=== PATIENT | male | born 1925 | race Caucasian/White ===

== ENCOUNTER 2016-12-10 19:39 | Inpatient (IN) | payer MEDICARE ==
--- NOTE | 2016-12-10 20:09 | C.PDOC ---
History Of Present Illness REFERRED PMD FOR WORSENING SOB X 2-3 WEEKS. PS HO CHRONIC SOB BUT NOW MORE SWARTZ, "TAKING LONGER TO RECOVER" THAN USUAL. +ASSOC CHEST PRESSURE. SX IMPROVE W REST. NEW ONSET HYPOXIA. DENIES HO COPD. COMPLIANT W MEDS. HO AORTIC STENOSIS, MV REPAIR. NOT ON ANTICOAG DUE TO PRIOR HO "ANEMIA", PUD. EXAM 92% RA MILD DIST NONTOXIC HEENT MILD PALLOR MMM LUNGS B/L BASILAR RALES NO RETRACTION CV RRR ABD NEG NO EDEMA WARM DRY GOOD TURGOR RECTAL BROWN STOOL RN BRITTA EVENT PLANNER PS NO IMPROVE W O2 USE. Time Seen by Provider: 12/10/16 19:53 Chief Complaint (Nursing): Shortness Of Breath History Per: Patient History/Exam Limitations: no limitations Onset/Duration Of Symptoms: Days Current Symptoms Are (Timing): Worse Quality: Pressure Current Respiratory Medications: See Home Med List Associated Symptoms: Chest Pain. denies: Fever, Bloody Cough, Ankle/Leg Swelling, Dizziness Recent travel outside of the [place]: No Past Medical History Reviewed: Historical Data, Nursing Documentation, Vital Signs Vital Signs: Last Vital Signs Temp 97.7 F 12/10/16 19:43 Pulse 98 H 12/10/16 19:43 Resp 16 12/10/16 20:00 BP 147/71 12/10/16 19:43 Pulse Ox 92 L 12/10/16 22:54 - Medical History PMH: Anemia, Anxiety, Arthritis (BL TKR), Asthma, Benign Prostatic Hyperplasia, CAD, CHF, COPD, Diabetes, Diverticulitis, Gastritis, Gastrointestinal Ulcer, Gall Bladder Disease, Hiatal Hernia, HTN, Hypercholesterolemia, Hyperlipidemia Surgical History: CABG, Cholecystectomy, Coronary Stent, Endoscopy, Pacemaker ( with defibrillator) - [facility] Procedures INTRAOPER CHOLANGIOGRAM (06/26/14) LAPAROSCOPIC CHOLECYSTECTOMY (06/26/14) OTHER ENDOSCOPY OF SM INTEST (07/01/14) Family History: States: Unknown Family Hx - Social History Hx Tobacco Use: Yes Hx Alcohol Use: Yes Hx Substance Use: No - Immunization History Hx Tetanus Toxoid Vaccination: No Hx Influenza Vaccination: Yes Hx Pneumococcal Vaccination: Yes Review Of Systems Constitutional: Negative for: Fever, Chills Cardiovascular: Positive for: Chest Pain Respiratory: Positive for: SOB with Excertion. Negative for: Cough Gastrointestinal: Negative for: Nausea, Vomiting Skin: Negative for: Rash Neurological: Negative for: Dizziness Physical Exam - Physical Exam Appears: Non-toxic, Other (MILD DISTRESS, 92% RA) Skin: Warm, Dry, Other (GOOD TURGOR) Head: Atraumatic, Normacephalic Eye(s): bilateral: PERRL, EOMI, Conjunctiva Pale (MILD) Oral Mucosa: Moist Chest: Symmetrical Cardiovascular: Rhythm Regular, No Edema, No Murmur Respiratory: No Accessory Muscle Use, Rales (BIBASILAR), No Wheezing Gastrointestinal/Abdominal: Soft, No Tenderness, No Guarding, No Rebound Rectal: No Blood Streaked Stool, Other (BROWN STOOL. RN BRITTA SANCHEZ. ) Back: Normal Inspection Extremity: Normal ROM, No Pedal Edema, Capillary Refill (< 2 SEC. ) Neurological/Psych: Oriented x3 ED Course And Treatment - Laboratory Results Result Diagrams: 12/10/16 20:43 12/10/16 20:43 ECG: Interpreted By Ia ECG Rhythm: R BBB ECG Interpretation: Abnormal Interpretation Of ECG: NO PRIOR Rate From EC O2 Sat by Pulse Oximetry: 92 (RA) Pulse Ox Interpretation: Abnormal - Radiology CXR: Interpreted by Ia CXR Interpretation: Yes: Other (CHF) - CT Scan/US CTA Chest Other Rad Studies (CT/US): Read By Radiologist, Radiology Report Reviewed CT/US Interpretation: IMPRESSION: No filling defect within the main, proximal or segmental pulmonary arteries. Findings consistent with prior asbestos exposure, and chronic interstitial lung disease, as detailed. above. Progress - Re-Evaluation Re-evaluation Note: 12/10/16 21:27 EXAM UNCH NARD VSS. WILL CTA 12/10/16 22:53 d/w dr yumiko underwood aware of cta findings, will admit EXAM UNCH PRIOR - Data Reviewed Data Reviewed: Lab, Diagnostic imaging, EKG, Old records - Critical Care Citical Care: Excluding Proc Time Critical Care Time: 90 minutes - Continuity of Care Discussed patient case with:: Patient, PMD Disposition Counseled Patient/Family Regarding: Studies Performed, Diagnosis - Disposition Disposition: HOSPITALIZED Disposition Time: 22:53 Condition: STABLE - POA Present On Arrival: None - Clinical Impression Clinical Impression: Dyspnea, Shortness of breath on exertion, Hypoxemia - Scribe Statement The provider has reviewed the documentation as recorded by the Kelliibcyndi Hudson All medical record entries made by the Scribe were at my direction and personally dictated by me. I have reviewed the chart and agree that the record accurately reflects my personal performance of the history, physical exam, medical decision making, and the department course for this patient. I have also personally directed, reviewed, and agree with the discharge instructions and disposition. Decision To Admit - Pt Status Changed To: Hospital Disposition Of: Inpatient - Admit Certification Admit to Inpatient:: After my assessment, the patient will require hospitalization for at least two midnights. This is because of the severity of symptoms shown, intensity of services needed, and/or the medical risk in this patient being treated as an outpatient. - InPatient: Physician Admission Certification: I certify that this patient requires 2 or more midnights of care for the following reason:: SEE NOTE - . Bed Request Type: Regular Admitting Physician: Torsten Underwood Patient Diagnosis: Dyspnea, Shortness of breath on exertion, Hypoxemia
[2016-12-10 20:52] LABS: BASO # 0.1 K/uL (0.0-0.2); BASO % 1.1 % (0.0-2.0); EOS # 0.2 K/uL (0.0-0.7); HEMATOCRIT 30.8 % (35.0-51.0); LYMPH # 0.6 K/uL (1.0-4.3); LYMPH % 12.5 % (20.0-40.0); MEAN CELL VOLUME 78.1 fL (80.0-94.0); MEAN CORPUSCULAR HEMOGLOBIN 24.5 pg (27.0-31.0); MEAN CORPUSCULAR HGB CONC 31.4 g/dL (33.0-37.0); MEAN PLATELET VOLUME 8.5 fL (7.2-11.7); MONO # 0.6 K/uL (0.0-0.8); MONO % 12.8 % (0.0-10.0); RED CELL DISTRIBUTION WIDTH 18.6 % (11.5-14.5); WHITE BLOOD COUNT 5.1 K/uL (4.8-10.8)
[2016-12-10 20:57] LABS: ABG ALLEN TEST POS; DRAW SITE RRADIAL
[2016-12-10 21:00] LABS: CHLORIDE 99 mmol/L (98-107); SODIUM 133 mmol/L (132-148)
[2016-12-10 21:01] LABS: POTASSIUM 4.1 mmol/L (3.6-5.2)
[2016-12-10 21:03] LABS: ALKALINE PHOSPHATASE 53 U/L (38-126); AST/SGOT 36 U/L (17-59); BILIRUBIN,TOTAL 0.7 mg/dL (0.2-1.3); BLOOD UREA NITROGEN 39 mg/dL (9-20); CARBON DIOXIDE 23 mmol/L (22-30); GFR AFRICAN-AMERICAN > 60; GLUCOSE,RANDOM 151 mg/dL (75-110)
[2016-12-10 21:04] LABS: ALT/SGPT 22 U/L (21-72); CALCIUM 8.2 mg/dl (8.6-10.4); MAGNESIUM 2.5 mg/dL (1.6-2.3)
[2016-12-10 21:12] LABS: INR 1.4
[2016-12-10 21:33] LABS: THYROID STIMULATING HORMONE 1.72 mIU/L (0.46-4.68)
[2016-12-10] MEDS ORDERED: Iohexol 350mg/ml 100 ML ONE (21:39)
--- NOTE | 2016-12-10 22:46 | CT ---
EXAM: CT Angiography Chest With Intravenous Contrast CLINICAL HISTORY: 89 years old, male; Signs and symptoms; Shortness of breath; Additional info: SOB R/O pe TECHNIQUE: Axial computed tomographic angiography images of the chest with intravenous contrast using pulmonary embolism protocol. This CT exam was performed using one or more of the following dose reduction techniques: automated exposure control, adjustment of the mA and/or kV according to patient size, and/or use of iterative reconstruction technique. MIP reconstructed images were created and reviewed. Coronal and sagittal reformatted images were created and reviewed. CONTRAST: 100 mL of omnipaque 350 administered intravenously. COMPARISON: No relevant prior studies available. FINDINGS: Pulmonary arteries: Examination is markedly limited for the detection of pulmonary embolus secondary to poor bolus timing. No large filling defect is detected within the main, proximal or segmental pulmonary arteries. Limited evaluation of the subsegmental branches, secondary to the above. Aorta: No thoracic aortic aneurysm. Calcified atherosclerotic disease is present. Lungs: No mass. No consolidation. Severe centrilobular emphysematous change is identified. Multiple pleural plaques are also noted. Nodular pleural thickening is identified within the right lung base (series 4, image 73). Interstitial thickening with moderate bronchiectasis, specifically within the bilateral lower lobes. Pleural spaces: No significant effusion. No pneumothorax. Heart: The heart is enlarged, with significant calcified atherosclerotic disease. Findings consistent with a minimally invasive aortic valve replacement is identified. No significant pericardial effusion. No evidence of right heart dysfunction. An AICD is noted, with its leads projecting over the atrium, ventricle and coronary sinus. Bones: No acute fracture. Prior Median sternotomy is identified. Lymph nodes: No pathologically enlarged lymph nodes. IMPRESSION: No filling defect within the main, proximal or segmental pulmonary arteries. Findings consistent with prior asbestos exposure, and chronic interstitial lung disease, as detailed above. Additional nonacute findings are also detailed above.
[2016-12-10 23:45] LABS: RBC URINE 4 /hpf (0-3); TRANSITIONAL EPITHIAL < 1 /hpf (0-3); URINE BACTERIA RARE (<OCC); URINE BILIRUBIN NEGATIVE (NEGATIVE); URINE BLOOD 1+ (NEGATIVE); URINE COLOR Yellow (YELLOW); URINE GLUCOSE (UA) NORMAL (Normal); URINE KETONE NEGATIVE (NEGATIVE); URINE LEUKOCYTE ESTERASE NEG Leu/uL (Negative); URINE PROTEIN 1+ mg/dL (NEGATIVE); URINE UROBILINOGEN NORMAL mg/dL (0.2-1.0); WBC URINE 1 /hpf (0-5)
[2016-12-11] MEDS: Albuterol 0.083% Inhal Sol (2.5 mg/3 mL) UD INH SCH ×3 (07:37→19:07)
--- NOTE | 2016-12-11 08:47 | RAD ---
PROCEDURE: CHEST RADIOGRAPH, 1 VIEW HISTORY: Shortness of breath COMPARISON: 02/06/2015 FINDINGS: LUNGS: Prominent diffuse increased interstitial lung markings throughout both lungs suggestive for a moderate venous congestion and/or interstitial infiltrates. Additional patchy bibasilar airspace opacities with more focal consolidative changes at the left lung base. Scattered nodular densities throughout both lungs. Question small left pleural effusion. Biapical pleural thickening with upper lobe granulomatous changes. PLEURA: As above. CARDIOVASCULAR: Cardiomegaly. Calcification at the aortic knob. Status post median sternotomy. Left-sided pacemaker. OSSEOUS STRUCTURES: Degenerative changes in the spine and shoulders. VISUALIZED UPPER ABDOMEN: Normal. OTHER FINDINGS: None. IMPRESSION: Prominent diffuse increased interstitial lung markings throughout both lungs suggestive for a moderate venous congestion and/or interstitial infiltrates. Additional patchy bibasilar airspace opacities with more focal consolidative changes at the left lung base. Scattered nodular densities throughout both lungs. Question small left pleural effusion. Biapical pleural thickening with upper lobe granulomatous changes.
--- NOTE | 2016-12-11 18:50 | CARD ---
APPROVED REPORT EKG Measurement Heart [id number] <Conclusion> Normal sinus rhythm Electronic AV sequential Pacemaker / AICD with Right bundle branch block pattern. Abnormal ECG
--- NOTE | 2016-12-11 20:55 | CP.PCM.HP ---
History of Present Illness - History of Present Illness History of Present Illness: CC: increasing shortness of breath HPI: 89 yo male of [place] descent, formerly in the , who had been complaining of increasing shortness of breath katie when bending down or carrying heavy things like after he comes from grocery shopping. Over the last week, pt had also been unable to sleep and kept staying up overnight. 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 After a visit to the office where we discussed his medications, it became apparent that he had not been using his inhaled steroids during his neb treatments. Pt's daughter called afterwards and wanted to know what to do, and when instructed to monitor his pulse ox and HR religsiouly, pt reluctfolowed my advice and agreed to the monitoring of his oxygen status. During that time, we found precipitous drops in his O2 sat to the 50s even, prompting the to go to the ER for further evaluation. Present on Admission - Present on Admission Any Indicators Present on Admission: No History of DVT/PE: No History of Uncontrolled Diabetes: No Review of Systems - Review of Systems Systems not reviewed;Unavailable: Unstable Vital Signs, Respiratory Distress, Altered Mental Status All systems: reviewed and no additional remarkable complaints except - Cardiovascular Cardiovascular: As Per HPI, Dyspnea on Exertion - Respiratory Respiratory: Cough, Dyspnea, Dyspnea on Exertion - Gastrointestinal Gastrointestinal: Change in Bowel Habits, Early Satiety - Musculoskeletal Musculoskeletal: absent: As Per HPI, Abnormal Gait, Arthralgias, Atrophy, Back Pain, Deformity, Joint Swelling, Limited Range of Motion, Loss of Height, Muscle Cramps, Muscle Weakness, Myalgias, Neck Pain, Numbness, Radiating Pain into Limb, Stiffness, Tingling, Other - Integumentary Integumentary: absent: As Per HPI, Acne, Alopecia, Bleeding Lesions, Change in Hair, Change in Nails, Change in Pigmentation, Changing Lesions, Dry Skin, Erythema, Furuncle, Hirsutism, Lesions, New Lesions, Non-Healing Lesions, Photosensitivity, Pruritus, Rash, Skin Pain, Skin Ulcer, Sores, Striae, Swelling , Unusual Bruising, Wounds, Jaundice, Other - Neurological Neurological: absent: As Per HPI, Abnormal Gait, Abnormal Hearing, Abnormal Movements, Abnormal Speech, Behavioral Changes, Burning Sensations, Confusion, Convulsions, Disequilibrium, Dizziness, Numbness, Focal Weakness, Frequent Falls , Headaches, Lack of Coordination, Loss of Vision, Memory Loss, Paresthesias, Radicular Pain, Restless Legs, Sensory Deficit, Syncope, Tingling, Tremor, Vertigo, Weakness, Other Visual Disturbances, Other - Psychiatric Psychiatric: Anxiety, Confusion, Difficulty Concentrating, Memory Loss - Hematologic/Lymphatic Hematologic: absent: As Per HPI, Easy Bleeding, Easy Bruising, Lymphadenopathy, Other Past Patient History - Past Medical History & Family History Past Medical History?: Yes - Past Social History Smoking Status: Former Smoker - CARDIAC Hx Cardiac Disorders: Yes Hx Congestive Heart Failure: Yes Hx Hypercholesterolemia: Yes Hx Hypertension: Yes - PULMONARY Hx Chronic Obstructive Pulmonary Disease (COPD): Yes - NEUROLOGICAL Hx Neurological Disorder: No - HEENT Hx HEENT Problems: No - RENAL Hx Chronic Kidney Disease: Yes Other/Comment: mild CKD at times - ENDOCRINE/METABOLIC Hx Diabetes Mellitus Type 2: Yes - HEMATOLOGICAL/ONCOLOGICAL Hx Blood Disorders: Yes Hx Anemia: Yes - INTEGUMENTARY Hx Dermatological Problems: No - MUSCULOSKELETAL/RHEUMATOLOGICAL Hx Arthritis: Yes (BL TKR) - GASTROINTESTINAL Hx Gastrointestinal Disorders: Yes Hx Diverticulitis: Yes Hx Gall Bladder Disease: Yes Hx Gastritis: Yes - GENITOURINARY/GYNECOLOGICAL Hx Genitourinary Disorders: Yes Hx Prostate Problems: Yes - PSYCHIATRIC Hx Psychophysiologic Disorder: Yes Hx Anxiety: Yes Hx Substance Use: No - SURGICAL HISTORY Hx Surgeries: Yes Hx Cholecystectomy: Yes Hx Coronary Artery Bypass Graft: Yes Hx Coronary Stent: Yes - ANESTHESIA Hx Anesthesia: Yes Hx Anesthesia Reactions: No Hx Malignant Hyperthermia: No Has any member of the family had a problem w/ anesthesia?: No Meds Allergies/Adverse Reactions: Allergies Allergy/AdvReac Type Severity Reaction Status Date / Time warfarin sodium Allergy Verified 12/10/16 19:50 [From Coumadin] acetaminophen [From Vicodin] AdvReac SHORTNESS Verified 12/10/16 19:50 OF BREATH hydrocodone bitartrate AdvReac SHORTNESS Verified 12/10/16 19:50 [From Vicodin] OF BREATH Physical Exam - Constitutional Appears: No Acute Distress - Head Exam Head Exam: ATRAUMATIC, NORMAL INSPECTION, NORMOCEPHALIC - Eye Exam Eye Exam: EOMI, Normal appearance, PERRL Pupil Exam: NORMAL ACCOMODATION, PERRL - ENT Exam ENT Exam: Mucous Membranes Moist, Normal Exam, Normal Oropharynx - Neck Exam Neck exam: Positive for: Normal Inspection - Respiratory Exam Respiratory Exam: Clear to Auscultation Bilateral, NORMAL BREATHING PATTERN - Cardiovascular Exam Cardiovascular Exam: REGULAR RHYTHM, +S2 - GI/Abdominal Exam GI & Abdominal Exam: Firm, Normal Bowel Sounds, Soft - Rectal Exam Rectal Exam: Deferred, NORMAL INSPECTION - Back Exam Back exam: NORMAL INSPECTION, paraspinal tenderness - Neurological Exam Neurological exam: Alert (though slow to respond) - Psychiatric Exam Psychiatric exam: Normal Affect, Normal Mood - Skin Skin Exam: Dry, Erythema, Intact, Normal Color, Warm Results - Vital Signs Recent Vital Signs: Last Vital Signs Temp 99.4 F 12/11/16 15:10 Pulse 68 12/11/16 15:10 Resp 20 12/11/16 15:10 BP 118/62 12/11/16 15:10 Pulse Ox 96 12/11/16 15:10 - Labs Result Diagrams: 12/12/16 14:04 12/12/16 14:04 Labs: Laboratory Results - last 24 hr 12/10/16 12/10/16 12/11/16 23:36 23:46 06:52 Iron 29 L Urine Color Yellow Urine Clarity Clear Urine pH 5.0 Ur Specific [place] 1.023 Urine Protein 1+ H Urine Glucose (UA) Normal Urine Ketones Negative Urine Blood 1+ H Urine Nitrate Negative Urine Bilirubin Negative Urine Urobilinogen Normal Ur Leukocyte Esterase Neg Urine WBC (Auto) 1 Urine RBC (Auto) 4 H Ur Squamous Epith Cells < 1 Ur Transition Epith Cell < 1 Urine Bacteria Rare Hyaline Casts 6-10 H Blood Type A POSITIVE Antibody Screen Negative Assessment & Plan (1) Generalized weakness Assessment and Plan: unknown etiology; work up patient and observe; may be 2ndry to hyoxemia or lack of calories Status: Acute Priority: High (2) Hypoxemia Assessment and Plan: no apparent etiology, no acute issues except for 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 Status: Acute Priority: High (3) Shortness of breath on exertion Assessment and Plan: may be 2ndry to deconditioning though other etiologies definitely being explored Status: Chronic Priority: Medium (4) Rectal bleed Status: Acute Priority: High (5) Diabetes Status: Chronic Priority: Low (6) Hypertension Status: Chronic Priority: Medium (7) S/P aortic valve replacement Status: Chronic Priority: Low Decision To Admit - Pt Status Changed To: Hospital Disposition Of: Inpatient - Admit Certification Admit to Inpatient:: After my assessment, the patient will require hospitalization for at least two midnights. This is because of the severity of symptoms shown, intensity of services needed, and/or the medical risk in this patient being treated as an outpatient. - InPatient: Physician Admission Certification:: After my assessment, the patient will require hospitalization for at least two midnights. This is because of the severity of symptoms shown, intensity of services needed, and/or the medical risk in this patient being treated as an outpatient. - . Bed Request Type: Telemetry
[2016-12-11] MEDS: Morphine 15 mg Immediate Release Tab PO SCH (21:29)
[2016-12-11] MEDS: Rosuvastatin Calcium 2.5 mg Tab PO SCH (21:29)
[2016-12-11] MEDS ORDERED: traZODone 25 mg Tab PO SCH (22:00)
[2016-12-12] MEDS: Albuterol 0.083% Inhal Sol (2.5 mg/3 mL) UD INH SCH ×4 (01:13→19:13)
[2016-12-12] MEDS: Budesonide 0.5 mg/2 ml Inhal Susp UD INH SCH ×2 (07:18→19:13)
[2016-12-12] MEDS: Morphine 15 mg Immediate Release Tab PO SCH ×2 (09:17→21:41)
[2016-12-12 14:16] LABS: BASO % 0.6 % (0.0-2.0); EOS # 0.1 K/uL (0.0-0.7); HEMATOCRIT 33.6 % (35.0-51.0); LYMPH # 0.7 K/uL (1.0-4.3); LYMPH % 9.1 % (20.0-40.0); MEAN CELL VOLUME 78.5 fL (80.0-94.0); MEAN CORPUSCULAR HEMOGLOBIN 24.5 pg (27.0-31.0); MEAN CORPUSCULAR HGB CONC 31.2 g/dL (33.0-37.0); MEAN PLATELET VOLUME 8.6 fL (7.2-11.7); MONO # 0.2 K/uL (0.0-0.8); MONO % 2.9 % (0.0-10.0); PLATELET COUNT 177 K/uL (130-400); RED CELL DISTRIBUTION WIDTH 18.4 % (11.5-14.5); WHITE BLOOD COUNT 7.5 K/uL (4.8-10.8)
[2016-12-12 14:26] LABS: CHLORIDE 97 mmol/L (98-107); POTASSIUM 4.8 mmol/L (3.6-5.2); SODIUM 133 mmol/L (132-148)
[2016-12-12 14:29] LABS: BLOOD UREA NITROGEN 29 mg/dL (9-20); CARBON DIOXIDE 21 mmol/L (22-30); GFR AFRICAN-AMERICAN > 60
[2016-12-12 14:30] LABS: CALCIUM 8.7 mg/dl (8.6-10.4); GLUCOSE,RANDOM 191 mg/dL (75-110)
[2016-12-12 14:44] LABS: EOSINOPHIL 1 % (0-4); NEUTROPHIL 83 % (50-75); TOTAL CELLS COUNTED 100
[2016-12-12] MEDS ORDERED: Azithromycin 500 MG in Sodium Chloride 0.9% 250 ML IVPB SCH (16:00)
[2016-12-12] MEDS ORDERED: cefTRIAXone 500 MG in Sodium Chloride 0.9% 50 ML IVPB SCH (17:00)
[2016-12-12 17:46] LABS: RBC URINE 5 /hpf (0-3); URINE BACTERIA RARE (<OCC); URINE BILIRUBIN NEGATIVE (NEGATIVE); URINE COLOR Yellow (YELLOW); URINE GLUCOSE (UA) NORMAL (Normal); URINE KETONE NEGATIVE (NEGATIVE); URINE LEUKOCYTE ESTERASE NEG Leu/uL (Negative); URINE PROTEIN 1+ mg/dL (NEGATIVE); URINE UROBILINOGEN NORMAL mg/dL (0.2-1.0); WBC URINE < 1 /hpf (0-5)
[2016-12-12 17:47] LABS: URINE BLOOD TRACE (NEGATIVE)
--- NOTE | 2016-12-12 20:33 | CP.PCM.PN ---
Subjective - Date & Time of Evaluation Date of Evaluation: 12/12/16 Time of Evaluation: 20:31 - Subjective Subjective: cc: insomnia, weakness, fever HPI: Pt admitted for weakness and shortness of breath, and pt's O2 sat kept dropping while at ED until he got O2 by NC. Today, pt spiked a temp of 101 initially and was given ibuprofen for his temp. Pt seen at bedside, looks better than when I saw him last, and appears to have rested. Says he did not eat today, and ate his canned peaches with gusto. > Relates that he did not get up and soiled himself in bed. Pt looks a little better than he did at the office though. > Abx given, tolerating tests. Objective - Vital Signs/Intake and Output Vital Signs (last 24 hours): Temp Pulse Resp BP Pulse Ox 100.1 F H 102 H 21 95/56 L 95 12/12/16 16:00 12/12/16 16:00 12/12/16 16:00 12/12/16 16:00 12/12/16 08:31 Intake and Output: 12/12/16 12/13/16 18:59 06:59 Intake Total 300 Balance 300 - Medications Medications: Current Medications Albuterol Sulfate (Albuterol 0.083% Inhal Nahomy (2.5 Mg/3 Ml) Ud) 2.5 mg INH RQ6 JOHN Last Admin: 12/12/16 19:13 Dose: 2.5 mg Aspirin (Ecotrin) 81 mg PO DAILY JOHN Last Admin: 12/11/16 10:37 Dose: 81 mg Budesonide (Pulmicort Respules) 0.5 mg INH RQ12 JOHN Last Admin: 12/12/16 19:13 Dose: 0.5 mg Famotidine (Pepcid) 20 mg PO DAILY JOHN Last Admin: 12/12/16 09:16 Dose: 20 mg Ceftriaxone Sodium 500 mg/ (Sodium Chloride) 100 mls @ 100 mls/hr IVPB Q24H JOHN Last Admin: 12/12/16 17:30 Dose: 100 mls/hr Azithromycin 500 mg/ Sodium (Chloride) 250 mls @ 250 mls/hr IVPB DAILY@1830 JOHN Ibuprofen (Motrin Oral Susp) 200 mg PO Q4 PRN PRN Reason: Fever >100.4 F Last Admin: 12/12/16 19:45 Dose: 200 mg Loratadine (Claritin) 10 mg PO DAILY [facility] Last Admin: 12/12/16 09:16 Dose: 10 mg Losartan Potassium (Cozaar) 25 mg PO DAILY [facility] Last Admin: 12/12/16 09:16 Dose: 25 mg Mirtazapine (Remeron) 15 mg PO [facility] Last Admin: 12/11/16 21:29 Dose: 15 mg Morphine Sulfate (Morphine Immediate Release Tab) 15 mg PO Q12 [facility] Last Admin: 12/12/16 09:17 Dose: 15 mg Rosuvastatin Calcium (Crestor) 2.5 mg PO HS [facility] Last Admin: 12/11/16 21:29 Dose: 2.5 mg Tamsulosin HCl (Flomax) 0.4 mg PO DAILY [facility] Last Admin: 12/12/16 09:16 Dose: 0.4 mg Trazodone HCl (Desyrel) 50 mg PO [facility] - Labs Labs: 12/12/16 14:04 12/12/16 14:04 PT 15.5 SECONDS (9.7-12.2) H 12/10/16 20:43 INR 1.4 12/10/16 20:43 APTT 26 SECONDS (21-34) 12/10/16 20:43 - Constitutional Appears: No Acute Distress - Head Exam Head Exam: NORMAL INSPECTION - Eye Exam Eye Exam: Normal appearance - ENT Exam ENT Exam: Mucous Membranes Moist, Normal Exam - Neck Exam Neck Exam: Normal Inspection - Respiratory Exam Respiratory Exam: NORMAL BREATHING PATTERN - Cardiovascular Exam Cardiovascular Exam: REGULAR RHYTHM - GI/Abdominal Exam GI & Abdominal Exam: Normal Bowel Sounds - Rectal Exam Rectal Exam: Deferred - Back Exam Back Exam: NORMAL INSPECTION - Neurological Exam Neurological Exam: Alert, Awake, CN II-XII Intact Neuro motor strength exam: Left Upper Extremity: 4, Right Upper Extremity: 4, Left Lower Extremity: 4, Right Lower Extremity: 4 - Psychiatric Exam Psychiatric exam: Normal Affect, Normal Mood - Skin Skin Exam: Normal Color, Warm Assessment and Plan (1) Pneumonia Assessment & Plan: on IV abx and appears to be responding well clinically Status: Acute (2) Generalized weakness Assessment & Plan: eating more with appetite stimulant Status: Acute (3) Hypoxemia Assessment & Plan: awaiting PT and OT compliance of order (pre and post ambulation O2) when pt a little improved Status: Acute (4) Shortness of breath on exertion Assessment & Plan: may need BARBARA? Status: Chronic
--- NOTE | 2016-12-12 20:34 | CP.PCM.CON ---
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 Review of Systems - Review of Systems All systems: reviewed and no additional remarkable complaints except - Respiratory Respiratory: Dyspnea, Dyspnea on Exertion - Musculoskeletal Musculoskeletal: Abnormal Gait, Muscle Weakness Past Patient History - Past Medical History & Family History Past Medical History?: Yes - Past Social History Smoking Status: Former Smoker - CARDIAC Hx Cardiac Disorders: Yes Hx Congestive Heart Failure: Yes Hx Hypercholesterolemia: Yes Hx Hypertension: Yes - PULMONARY Hx Chronic Obstructive Pulmonary Disease (COPD): Yes - NEUROLOGICAL Hx Neurological Disorder: No - HEENT Hx HEENT Problems: No - RENAL Hx Chronic Kidney Disease: Yes Other/Comment: mild CKD at times - ENDOCRINE/METABOLIC Hx Diabetes Mellitus Type 2: Yes - HEMATOLOGICAL/ONCOLOGICAL Hx Blood Disorders: Yes Hx Anemia: Yes - INTEGUMENTARY Hx Dermatological Problems: No - MUSCULOSKELETAL/RHEUMATOLOGICAL Hx Arthritis: Yes (BL TKR) - GASTROINTESTINAL Hx Gastrointestinal Disorders: Yes Hx Diverticulitis: Yes Hx Gall Bladder Disease: Yes Hx Gastritis: Yes - GENITOURINARY/GYNECOLOGICAL Hx Genitourinary Disorders: Yes Hx Prostate Problems: Yes - PSYCHIATRIC Hx Psychophysiologic Disorder: Yes Hx Anxiety: Yes Hx Substance Use: No - SURGICAL HISTORY Hx Surgeries: Yes Hx Cholecystectomy: Yes Hx Coronary Artery Bypass Graft: Yes Hx Coronary Stent: Yes - ANESTHESIA Hx Anesthesia: Yes Hx Anesthesia Reactions: No Hx Malignant Hyperthermia: No Has any member of the family had a problem w/ anesthesia?: No Meds Allergies/Adverse Reactions: Allergies Allergy/AdvReac Type Severity Reaction Status Date / Time warfarin sodium Allergy Verified 12/10/16 19:50 [From Coumadin] acetaminophen [From Vicodin] AdvReac SHORTNESS Verified 12/10/16 19:50 OF BREATH hydrocodone bitartrate AdvReac SHORTNESS Verified 12/10/16 19:50 [From Vicodin] OF BREATH - Medications Medications: Current Medications Albuterol Sulfate (Albuterol 0.083% Inhal Nahomy (2.5 Mg/3 Ml) Ud) 2.5 mg INH RQ6 [facility] Last Admin: 12/12/16 19:13 Dose: 2.5 mg Aspirin (Ecotrin) 81 mg PO DAILY [facility] Last Admin: 12/11/16 10:37 Dose: 81 mg Budesonide (Pulmicort Respules) 0.5 mg INH RQ12 [facility] Last Admin: 12/12/16 19:13 Dose: 0.5 mg Famotidine (Pepcid) 20 mg PO DAILY [facility] Last Admin: 12/12/16 09:16 Dose: 20 mg Ceftriaxone Sodium 500 mg/ (Sodium Chloride) 100 mls @ 100 mls/hr IVPB Q24H [facility] Last Admin: 12/12/16 17:30 Dose: 100 mls/hr Azithromycin 500 mg/ Sodium (Chloride) 250 mls @ 250 mls/hr IVPB DAILY@1830 [facility] Ibuprofen (Motrin Oral Susp) 200 mg PO Q4 PRN PRN Reason: Fever >100.4 F Last Admin: 12/12/16 19:45 Dose: 200 mg Loratadine (Claritin) 10 mg PO DAILY [facility] Last Admin: 12/12/16 09:16 Dose: 10 mg Losartan Potassium (Cozaar) 25 mg PO DAILY [facility] Last Admin: 12/12/16 09:16 Dose: 25 mg Mirtazapine (Remeron) 15 mg PO HS [facility] Last Admin: 12/11/16 21:29 Dose: 15 mg Morphine Sulfate (Morphine Immediate Release Tab) 15 mg PO Q12 [facility] Last Admin: 12/12/16 09:17 Dose: 15 mg Rosuvastatin Calcium (Crestor) 2.5 mg PO HS [facility] Last Admin: 12/11/16 21:29 Dose: 2.5 mg Tamsulosin HCl (Flomax) 0.4 mg PO DAILY [facility] Last Admin: 12/12/16 09:16 Dose: 0.4 mg Trazodone HCl (Desyrel) 50 mg PO [facility] Physical Exam - Constitutional Appears: Chronically Ill - Head Exam Head Exam: ATRAUMATIC, NORMOCEPHALIC - Eye Exam Eye Exam: Normal appearance - ENT Exam ENT Exam: Mucous Membranes Moist - Respiratory Exam Respiratory Exam: Decreased Breath Sounds, Rales - Cardiovascular Exam Cardiovascular Exam: +S1, +S2, Systolic Murmur - GI/Abdominal Exam GI & Abdominal Exam: Normal Bowel Sounds - Rectal Exam Rectal Exam: Deferred - Neurological Exam Neurological exam: Alert, Oriented x3 - Psychiatric Exam Psychiatric exam: Depressed - Skin Skin Exam: Intact Results - Vital Signs Recent Vital Signs: Last Vital Signs Temp 100.1 F H 12/12/16 16:00 Pulse 102 H 12/12/16 16:00 Resp 21 12/12/16 16:00 BP 95/56 L 12/12/16 16:00 Pulse Ox 95 12/12/16 08:31 - Labs Result Diagrams: 12/12/16 14:04 12/12/16 14:04 Labs: Laboratory Results - last 24 hr 12/12/16 12/12/16 12/12/16 06:20 06:20 14:04 WBC 7.5 RBC 4.28 L Hgb 10.5 L Hct 33.6 L MCV 78.5 L MCH 24.5 L MCHC 31.2 L RDW 18.4 H Plt Count 177 MPV 8.6 Neut % (Auto) 86.4 H Lymph % (Auto) 9.1 L [place] % (Auto) 2.9 Eos % (Auto) 1.0 Baso % (Auto) 0.6 Neut # 6.5 Lymph # 0.7 L [place] # 0.2 Eos # 0.1 Baso # 0.0 Neutrophils % (Manual) 83 H Band Neutrophils % 4 H Lymphocytes % (Manual) 11 L Monocytes % (Manual) 1 Eosinophils % (Manual) 1 Platelet Estimate Normal Hypochromasia (manual) Slight Poikilocytosis (manual Slight Anisocytosis (manual) Slight Microcytosis (manual) Slight Sodium Potassium Chloride Carbon Dioxide Anion Gap BUN Creatinine Est GFR ( Amer) Est GFR (Non-Af Amer) Random Glucose Calcium Iron 36 L Carcinoembryonic Ag 5.7 H Urine Color Urine Clarity Urine pH Ur Specific Agness Urine Protein Urine Glucose (UA) Urine Ketones Urine Blood Urine Nitrate Urine Bilirubin Urine Urobilinogen Ur Leukocyte Esterase Urine WBC (Auto) Urine RBC (Auto) Ur Squamous Epith Cells Urine Bacteria 12/12/16 12/12/16 14:04 17:29 WBC RBC Hgb Hct MCV MCH MCHC RDW Plt Count MPV Neut % (Auto) Lymph % (Auto) [place] % (Auto) Eos % (Auto) Baso % (Auto) Neut # Lymph # [place] # Eos # Baso # Neutrophils % (Manual) Band Neutrophils % Lymphocytes % (Manual) Monocytes % (Manual) Eosinophils % (Manual) Platelet Estimate Hypochromasia (manual) Poikilocytosis (manual Anisocytosis (manual) Microcytosis (manual) Sodium 133 Potassium 4.8 Chloride 97 L Carbon Dioxide 21 L Anion Gap 20 BUN 29 H Creatinine 1.3 Est GFR ( Amer) > 60 Est GFR (Non-Af Amer) 52 Random Glucose 191 H Calcium 8.7 Iron Carcinoembryonic Ag Urine Color Yellow Urine Clarity Hazy Urine pH 5.0 Ur Specific Agness 1.015 Urine Protein 1+ H Urine Glucose (UA) Normal Urine Ketones Negative Urine Blood Trace H Urine Nitrate Negative Urine Bilirubin Negative Urine Urobilinogen Normal Ur Leukocyte Esterase Neg Urine WBC (Auto) < 1 Urine RBC (Auto) 5 H Ur Squamous Epith Cells 2 Urine Bacteria Rare Assessment & Plan - Assessment and Plan (Free Text) Plan: 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
[2016-12-12] MEDS: Rosuvastatin Calcium 2.5 mg Tab PO SCH (21:40)
[2016-12-12] MEDS: Azithromycin 500 MG in Sodium Chloride 0.9% 250 ML IVPB SCH (21:45)
--- NOTE | 2016-12-12 23:24 | RAD ---
HISTORY: Possible Pneumonia COMPARISON: Chest x-ray performed 12/10/16 TECHNIQUE: Chest PA and lateral FINDINGS: Examination limited by habitus and hypoinflation. LUNGS: Prominent diffuse increased interstitial markings noted bilaterally. No large pleural effusion or definite pneumothorax identified. Please note that chest x-ray has limited sensitivity for the detection of pulmonary masses. CARDIOVASCULAR: Left-sided AICD. Cardiomegaly. Dense atherosclerotic calcifications of the aorta. Median sternotomy wires. OSSEOUS STRUCTURES: No acute osseous abnormality identified. VISUALIZED UPPER ABDOMEN: Unremarkable. OTHER FINDINGS: None. IMPRESSION: Prominent diffuse increased interstitial markings noted bilaterally.
[2016-12-13 01:10] VITALS: RESP 20
[2016-12-13] MEDS: Albuterol 0.083% Inhal Sol (2.5 mg/3 mL) UD INH SCH ×4 (01:39→20:28)
[2016-12-13] MEDS: Budesonide 0.5 mg/2 ml Inhal Susp UD INH SCH ×2 (08:02→20:28)
[2016-12-13] MEDS: Morphine 15 mg Immediate Release Tab PO SCH (10:20)
--- NOTE | 2016-12-13 14:16 | RAD ---
Lumbar spine radiographs Indication: Chronic low back pain Comparison: Lumbar spine is visualized on CT abdomen and pelvis with contrast performed 02/04/15 Findings: Partially imaged median sternotomy wires and AICD leads. Scoliosis with curvature of the lumbar spine convex to the right. Multilevel degenerative changes including osteophyte formation and intervertebral disc space narrowing. Facet hypertrophy. No acute displaced fracture or subluxation identified. Dense atherosclerotic calcification of the aorta and branches. Impression: Marked scoliosis convex to the right. Extensive multilevel degenerative changes. No acute displaced fracture or subluxation evident. MRI may be considered for further evaluation if indicated.
[2016-12-13] MEDS ORDERED: Morphine 15 mg Immediate Release Tab PO PRN (14:24)
--- NOTE | 2016-12-13 16:01 | CON ---
DATE: 12/13/2016 CHIEF COMPLAINT AND REASON FOR CONSULTATION: The patient referred by Dr. Torsten Underwood for evaluation. The patient is having trouble sleeping, having anxiety and stayed awake all night. HISTORY OF PRESENT ILLNESS: This is a case of an 89-year-old male of [place] descent who was admitted here for increased shortness of breath. The patient also has been having problems sleeping and having bouts of anxiety. The patient has complex medical problems. He said he is also having severe pain. In the Emergency Room, it was noted the patient was having drop of his oxygen saturation into the 50s and admitted for the treatment for his pulmonary problems. The patient when seen today, still complaining of anxiety and trouble sleeping. He was prescribed trazodone 50 mg at bedtime and Remeron 15 mg at bedtime. The patient was also given morphine 15 mg q. 12. The patient is not taking much pain medication because he has pain tolerance, but would like to have it as needed. PAST PSYCHIATRIC HISTORY: History of anxiety and chronic insomnia. PAST MEDICAL HISTORY: The patient has history of diabetes, hypertension, history of prior asbestos exposure from his job, TIA, dehydration, CAD, history of CABG. He has a history of rectal bleed, gastritis. DRUG AND ALCOHOL HISTORY: Denies any. ALLERGIES: ALLERGIC TO WARFARIN, ACETAMINOPHEN AND VICODIN. PSYCHOSOCIAL HISTORY: The patient used been in the . He lives by himself. He is retired. VITAL SIGNS: Temperature is 98, pulse rate 65, blood pressure is 119/61, respirations 20, oxygen saturation is 95%. LIST OF CURRENT MEDICATIONS: The patient was given albuterol, loratadine, losartan, morphine 50 mg q. 12, Flomax, famotidine, ibuprofen, patient is on Remeron 15 mg at bedtime was also given trazodone 50 mg at bedtime. The patient has azithromycin, ceftriaxone. LABORATORY DATA: Review of his labs, WBC 7.5, H and H is 10.5/33.6. Creatinine is 1.3, blood sugar is 191. UA: Presence of urine RBC, glucose is normal. TSH is 1.72 within normal limits. REVIEW OF SYSTEMS: GENERAL: The patient is alert and oriented x 3, seen with his daughter. He is noted to be irritable at times, but he stated that he is not having pain, only wants to take pain medication as needed. SKIN: No diaphoresis. HEENT: No headache or dizziness. NECK: Supple. RESPIRATORY: Has off and on dyspnea. The patient states that he has been exposed to asbestos before. He feels tired. CARDIOVASCULAR: No chest pain or palpitation. GASTROINTESTINAL: Appetite is poor. EXTREMITIES: Gait is unsteady. MUSCULOSKELETAL: has generalized weakness. NEUROLOGIC: Alert, oriented x 3. GENITOURINARY: No urinary problems. MENTAL STATUS EXAMINATION: Elderly male who looks stated age, about 5 feet 8 inches, weighs 156 pounds. The patient is anxious, preoccupied about his poor appetite and no sleeping well. Affect is reactive. Speech spontaneous. Thought process coherent. Thought content: No psychosis. No suicidal or homicidal ideation. Discussed with the patient about the drug interaction about his medication, especially the patient is dual antidepressants as well as morphine. The antidepressants can reinforce the action of morphine which can compromise his breathing if taken altogether. The patient has agreed to take morphine as needed instead of standing. Also, the trazodone, we will try to take the trazodone off this patient as the patient as significant cardiac problems and trazodone can worsen cardiac problems. However, Remeron we can increase the dose, as Remeron has a sleeper profile with interaction with other meds, especially cardiac meds. Attention and memory seem to be fair. Insight and judgment fair. Impulse control is fair. IMPRESSION: Mood disorder secondary to medical problems. PLAN AND RECOMMENDATION: The patient seen, meds reviewed. Continue present management. We will change of the morphine 50 mg q. 12 standing to p.r.n. as the patient wants. We will discontinue the trazodone and we will increase the Remeron to 22.5 mg at bedtime to improve his appetite as well as to improve his mood and to help him sleep. Due to patient's history of chronic interstitial pulmonary disease, the patient is not a good candidate to take hypnotics at this. Kel Capone MD cc: [phone] TT: 12/13/2016 16:00:38 Confirmation # [id number] Dictation # [id number] edgar GOODMAN
[2016-12-13] MEDS: Saccharomyces Boulardi 250 mg Cap PO SCH (17:27)
[2016-12-13] MEDS: Azithromycin 500 MG in Sodium Chloride 0.9% 250 ML IVPB SCH (18:39)
--- NOTE | 2016-12-13 20:34 | CP.PCM.PN ---
Subjective - Date & Time of Evaluation Date of Evaluation: 12/13/16 Time of Evaluation: 20:34 - Subjective Subjective: still with verma with minimal exertion, but clinically looks better today Objective - Vital Signs/Intake and Output Vital Signs (last 24 hours): Temp Pulse Resp BP Pulse Ox 97.5 F L 88 20 117/64 94 L 12/13/16 15:00 12/13/16 15:00 12/13/16 15:00 12/13/16 15:00 12/13/16 15:00 Intake and Output: 12/13/16 12/14/16 18:59 06:59 Intake Total 700 Balance 700 - Medications Medications: Current Medications Albuterol Sulfate (Albuterol 0.083% Inhal Nahomy (2.5 Mg/3 Ml) Ud) 2.5 mg INH RQ6 [facility] Last Admin: 12/13/16 20:28 Dose: Not Given Aspirin (Ecotrin) 81 mg PO DAILY [facility] Last Admin: 12/11/16 10:37 Dose: 81 mg Budesonide (Pulmicort Respules) 0.5 mg INH RQ12 [facility] Last Admin: 12/13/16 20:28 Dose: Not Given Famotidine (Pepcid) 20 mg PO DAILY [facility] Last Admin: 12/13/16 10:19 Dose: 20 mg Ceftriaxone Sodium 500 mg/ (Sodium Chloride) 100 mls @ 100 mls/hr IVPB Q24H [facility] Last Admin: 12/13/16 17:19 Dose: 100 mls/hr Azithromycin 500 mg/ Sodium (Chloride) 250 mls @ 250 mls/hr IVPB DAILY@1830 [facility] Last Admin: 12/13/16 18:39 Dose: 250 mls/hr Ibuprofen (Motrin Oral Susp) 200 mg PO Q4 PRN PRN Reason: Fever >100.4 F Last Admin: 12/12/16 19:45 Dose: 200 mg Loratadine (Claritin) 10 mg PO DAILY [facility] Last Admin: 12/13/16 10:19 Dose: 10 mg Losartan Potassium (Cozaar) 25 mg PO DAILY [facility] Last Admin: 12/13/16 10:20 Dose: 25 mg Mirtazapine (Remeron) 22.5 mg PO HS [facility] Morphine Sulfate (Morphine Immediate Release Tab) 15 mg PO Q12 PRN PRN Reason: pain Rosuvastatin Calcium (Crestor) 2.5 mg PO HS [facility] Last Admin: 12/12/16 21:40 Dose: 2.5 mg Saccharomyces Boulardii (Florastor) 250 mg PO BID [facility] Last Admin: 12/13/16 17:27 Dose: 250 mg Tamsulosin HCl (Flomax) 0.4 mg PO DAILY [facility] Last Admin: 12/13/16 10:20 Dose: 0.4 mg - Labs Labs: 12/12/16 14:04 12/12/16 14:04 PT 15.5 SECONDS (9.7-12.2) H 12/10/16 20:43 INR 1.4 12/10/16 20:43 APTT 26 SECONDS (21-34) 12/10/16 20:43 - Constitutional Appears: No Acute Distress, Chronically Ill - Head Exam Head Exam: ATRAUMATIC, NORMOCEPHALIC - Eye Exam Eye Exam: Normal appearance - ENT Exam ENT Exam: Mucous Membranes Moist - Respiratory Exam Respiratory Exam: Decreased Breath Sounds, Rales - Cardiovascular Exam Cardiovascular Exam: +S1, +S2 - GI/Abdominal Exam GI & Abdominal Exam: Normal Bowel Sounds - Rectal Exam Rectal Exam: Deferred - Neurological Exam Neurological Exam: Abnormal Gait, Alert, Awake - Psychiatric Exam Psychiatric exam: Normal Affect, Normal Mood - Skin Skin Exam: Intact
[2016-12-13] MEDS: Rosuvastatin Calcium 2.5 mg Tab PO SCH (21:27)
[2016-12-14] MEDS: Albuterol 0.083% Inhal Sol (2.5 mg/3 mL) UD INH SCH ×4 (02:48→19:35)
[2016-12-14 07:11] LABS: BASO % 0.1 % (0.0-2.0); LYMPH # 0.4 K/uL (1.0-4.3); LYMPH % 3.7 % (20.0-40.0); MEAN CORPUSCULAR HEMOGLOBIN 24.8 pg (27.0-31.0); MEAN CORPUSCULAR HGB CONC 32.6 g/dL (33.0-37.0); MEAN PLATELET VOLUME 8.7 fL (7.2-11.7); MONO # 0.4 K/uL (0.0-0.8); MONO % 4.2 % (0.0-10.0); NRBC % 0.1 % (0.0-2.0); PLATELET COUNT 134 K/uL (130-400); RED CELL DISTRIBUTION WIDTH 18.3 % (11.5-14.5); WHITE BLOOD COUNT 10.7 K/uL (4.8-10.8)
[2016-12-14 07:14] LABS: POTASSIUM 4.7 mmol/L (3.6-5.2)
[2016-12-14 07:16] LABS: BILIRUBIN,TOTAL 0.6 mg/dL (0.2-1.3)
[2016-12-14 07:17] LABS: ALB/GLOB RATIO 0.9 (1.0-2.1); CALCIUM 7.7 mg/dl (8.6-10.4); TOTAL PROTEIN 5.9 g/dL (6.3-8.3)
[2016-12-14 08:37] LABS: NEUTROPHIL 90 % (50-75); TOTAL CELLS COUNTED 100
[2016-12-14] MEDS: Budesonide 0.5 mg/2 ml Inhal Susp UD INH SCH ×2 (08:53→19:35)
[2016-12-14] MEDS: Saccharomyces Boulardi 250 mg Cap PO SCH ×2 (09:08→17:08)
[2016-12-14] MEDS ORDERED: Bismuth Subsalicylate 262 mg Chew Tab PO PRN (16:43)
[2016-12-14 17:15] LABS: HEMATOCRIT 29.1 % (35.0-51.0); LYMPH # 0.4 K/uL (1.0-4.3); LYMPH % 2.9 % (20.0-40.0); MEAN CELL VOLUME 76.7 fL (80.0-94.0); MEAN CORPUSCULAR HEMOGLOBIN 24.1 pg (27.0-31.0); MEAN CORPUSCULAR HGB CONC 31.4 g/dL (33.0-37.0); MEAN PLATELET VOLUME 8.6 fL (7.2-11.7); MONO # 0.8 K/uL (0.0-0.8); MONO % 5.7 % (0.0-10.0); PLATELET COUNT 145 K/uL (130-400); RED CELL DISTRIBUTION WIDTH 18.3 % (11.5-14.5); WHITE BLOOD COUNT 14.1 K/uL (4.8-10.8)
--- NOTE | 2016-12-14 17:37 | PN ---
DATE: 12/14/2016 SUBJECTIVE: The patient seen with family member. The patient is complaining of abdominal discomfort and dyspepsia and was asking for Pepto-Bismol. He also states that he did not sleep well last as he was having 4-5 bouts of diarrhea. Today, he was also asking about his antibiotic. VITAL SIGNS: Temperature is 98.4, pulse rate is 74, blood pressure is 132/72, respirations 20, oxygen saturation is 96%. The patient also states he did not ask for the morphine because he is afraid that it is going to compound his breathing as well as worse his constipation. The patient is on Remeron 22.5 mg at bedtime. REVIEW OF SYSTEMS: GENERAL: The patient is alert, verbal, seen in his room, noted to be anxious. The patient asking for Pepto-Bismol. SKIN: No diaphoresis. HEENT: No headache, no dizziness. NECK: Supple. RESPIRATORY: No dyspnea. CARDIOVASCULAR: No chest pain. GASTROINTESTINAL: Complaining of abdominal discomfort and runs of diarrhea. No nausea, no vomiting. EXTREMITIES: Gait is unsteady. MUSCULOSKELETAL: Feels weak. NEUROLOGIC: Alert and oriented x 3. GENITOURINARY: Not complaining of urinary problems. MENTAL STATUS EXAMINATION: Elderly male who looks stated age, still anxious at times. Affect is reactive. Speech spontaneous. Oriented x 3. Thought process coherent. Thought content: The patient wants to have his Pepto Bismol for dyspepsia. No paranoia. No suicidal or homicidal ideation. No hallucinations. Attention and memory seem to be fair. Insight and judgment fair. Impulse control is fair. IMPRESSION: Mood disorder, secondary to medical condition. PLAN AND RECOMMENDATIONS: The patient seen, meds reviewed. We will keep Pepto- Bismol p.r.n. for patient today. Continue Remeron 22.5 mg at bedtime as well as the morphine p.r.n. Continue treatment plan as outlined. Kel Capone MD cc: [phone] TT: 12/14/2016 17:35:58 Confirmation # [id number] Dictation # [id number] en MTDD
[2016-12-14 18:13] LABS: NEUTROPHIL 92 % (50-75); TOTAL CELLS COUNTED 100
[2016-12-14 18:14] LABS: LARGE PLATELETS PRESENT
[2016-12-14] MEDS: Azithromycin 500 MG in Sodium Chloride 0.9% 250 ML IVPB SCH (18:38)
[2016-12-14] MEDS: Rosuvastatin Calcium 2.5 mg Tab PO SCH (21:20)
--- NOTE | 2016-12-14 23:30 | CP.PCM.PN ---
Subjective - Date & Time of Evaluation Date of Evaluation: 12/13/16 Time of Evaluation: 17:30 - Subjective Subjective: Pt clinically improving. Has complaints of some pain but not as bad as before. Breathing better. Shortness of breath improved. No new episodes of diarrhea like yesterday. Stools > 1-2 per day, but pt on IV abx. > Pt does continue to complain of back pain, and is a 6/10. Pt unable to tolerate most pain meds 2ndry to hx of GI bleeding. Xray of lumbar spine ordered to rule out bony pathology. Objective - Vital Signs/Intake and Output Vital Signs (last 24 hours): Temp Pulse Resp BP Pulse Ox 97.1 F L 71 20 131/77 96 12/14/16 15:00 12/14/16 15:00 12/14/16 15:00 12/14/16 15:00 12/14/16 15:00 Intake and Output: 12/14/16 12/15/16 18:59 06:59 Intake Total 800 400 Output Total 300 Balance 800 100 - Medications Medications: Current Medications Albuterol Sulfate (Albuterol 0.083% Inhal Nahomy (2.5 Mg/3 Ml) Ud) 2.5 mg INH RQ6 [facility] Last Admin: 12/14/16 19:35 Dose: 2.5 mg Aspirin (Ecotrin) 81 mg PO DAILY [facility] Last Admin: 12/11/16 10:37 Dose: 81 mg Bismuth Subsalicylate (Pepto Bismol) 262 mg PO Q6H PRN PRN Reason: dyspepsia Last Admin: 12/14/16 17:20 Dose: 262 mg Budesonide (Pulmicort Respules) 0.5 mg INH RQ12 [facility] Last Admin: 12/14/16 19:35 Dose: 0.5 mg Famotidine (Pepcid) 20 mg PO DAILY [facility] Last Admin: 12/14/16 09:08 Dose: 20 mg Ceftriaxone Sodium 500 mg/ (Sodium Chloride) 100 mls @ 100 mls/hr IVPB Q24H [facility] Last Admin: 12/14/16 16:30 Dose: 100 mls/hr Azithromycin 500 mg/ Sodium (Chloride) 250 mls @ 250 mls/hr IVPB DAILY@1830 [facility] Last Admin: 12/14/16 18:38 Dose: 250 mls/hr Ibuprofen (Motrin Oral Susp) 200 mg PO Q4 PRN PRN Reason: Fever >100.4 F Last Admin: 12/12/16 19:45 Dose: 200 mg Loratadine (Claritin) 10 mg PO DAILY [facility] Last Admin: 12/14/16 09:08 Dose: 10 mg Losartan Potassium (Cozaar) 25 mg PO DAILY [facility] Last Admin: 12/14/16 09:08 Dose: 25 mg Mirtazapine (Remeron) 22.5 mg PO HS [facility] Last Admin: 12/14/16 21:20 Dose: 22.5 mg Morphine Sulfate (Morphine Immediate Release Tab) 15 mg PO Q12 PRN PRN Reason: pain Pantoprazole Sodium (Protonix Inj) 40 mg IVP DAILY [facility] Last Admin: 12/14/16 18:40 Dose: 40 mg Rosuvastatin Calcium (Crestor) 2.5 mg PO HS [facility] Last Admin: 12/14/16 21:20 Dose: 2.5 mg Saccharomyces Boulardii (Florastor) 250 mg PO BID [facility] Last Admin: 12/14/16 17:08 Dose: 250 mg Tamsulosin HCl (Flomax) 0.4 mg PO DAILY [facility] Last Admin: 12/14/16 09:08 Dose: 0.4 mg - Labs Labs: 12/14/16 17:10 12/14/16 06:52 PT 15.5 SECONDS (9.7-12.2) H 12/10/16 20:43 INR 1.4 12/10/16 20:43 APTT 26 SECONDS (21-34) 12/10/16 20:43 - Constitutional Appears: No Acute Distress - Head Exam Head Exam: ATRAUMATIC, NORMAL INSPECTION, NORMOCEPHALIC - Eye Exam Eye Exam: Normal appearance Pupil Exam: NORMAL ACCOMODATION - ENT Exam ENT Exam: Mucous Membranes Moist, Normal Exam - Neck Exam Neck Exam: Normal Inspection - Respiratory Exam Respiratory Exam: Clear to Ausculation Bilateral - Cardiovascular Exam Cardiovascular Exam: REGULAR RHYTHM Additional comments: paced rhythm - GI/Abdominal Exam GI & Abdominal Exam: Normal Bowel Sounds - Rectal Exam Rectal Exam: Deferred - Extremities Exam Extremities Exam: Full ROM, Normal Capillary Refill, Normal Inspection - Back Exam Back Exam: NORMAL INSPECTION, paraspinal tenderness, vertebral tenderness - Neurological Exam Neuro motor strength exam: Left Upper Extremity: 4, Right Upper Extremity: 4, Left Lower Extremity: 3, Right Lower Extremity: 3 - Psychiatric Exam Psychiatric exam: Normal Affect, Normal Mood - Skin Skin Exam: Dry, Intact, Normal Color, Warm Assessment and Plan (1) Pneumonia Status: Acute (2) Generalized weakness Status: Acute (3) Hypoxemia Status: Chronic (4) Shortness of breath on exertion Status: Chronic (5) Back pain Status: Acute (6) Scoliosis (and kyphoscoliosis), idiopathic Assessment & Plan: unknown problem to me before; may be 2ndry to OA and osteoporosis; TENS to area when at home appears effective Status: Acute
--- NOTE | 2016-12-14 23:33 | CP.PCM.PN ---
Subjective - Date & Time of Evaluation Date of Evaluation: 12/14/16 Time of Evaluation: 18:00 - Subjective Subjective: Pt;s labs reviewed and sodium decreased despite increased BUN/creatinine. No excessive fluid losses noted. And desipite it all, pt appears to be clinically improved. > Appetite better and finishing all his meals. > Pt's WBC spiked up today, with all CBC indices reflecting an upswing. Given 120 mg Solumedrol 2 days ago. Will monitor for now. Had requested Pepto-Bismol for presumably soft stools. May turn stools black at next BM. > Noted case mgt notes re: tcu vs rehab and issues with pt compliance. Awaiting PT eval of: 1) O2 status pre and post ambulation or exercise 2) placement (home vs [facility] vs tcu) Objective - Vital Signs/Intake and Output Vital Signs (last 24 hours): Temp Pulse Resp BP Pulse Ox 97.1 F L 71 20 131/77 96 12/14/16 15:00 12/14/16 15:00 12/14/16 15:00 12/14/16 15:00 12/14/16 15:00 Intake and Output: 12/14/16 12/15/16 18:59 06:59 Intake Total 800 400 Output Total 300 Balance 800 100 - Medications Medications: Current Medications Albuterol Sulfate (Albuterol 0.083% Inhal Nahomy (2.5 Mg/3 Ml) Ud) 2.5 mg INH RQ6 [facility] Last Admin: 12/14/16 19:35 Dose: 2.5 mg Aspirin (Ecotrin) 81 mg PO DAILY [facility] Last Admin: 12/11/16 10:37 Dose: 81 mg Bismuth Subsalicylate (Pepto Bismol) 262 mg PO Q6H PRN PRN Reason: dyspepsia Last Admin: 12/14/16 17:20 Dose: 262 mg Budesonide (Pulmicort Respules) 0.5 mg INH RQ12 [facility] Last Admin: 12/14/16 19:35 Dose: 0.5 mg Famotidine (Pepcid) 20 mg PO DAILY [facility] Last Admin: 12/14/16 09:08 Dose: 20 mg Ceftriaxone Sodium 500 mg/ (Sodium Chloride) 100 mls @ 100 mls/hr IVPB Q24H [facility] Last Admin: 12/14/16 16:30 Dose: 100 mls/hr Azithromycin 500 mg/ Sodium (Chloride) 250 mls @ 250 mls/hr IVPB DAILY@1830 [facility] Last Admin: 12/14/16 18:38 Dose: 250 mls/hr Ibuprofen (Motrin Oral Susp) 200 mg PO Q4 PRN PRN Reason: Fever >100.4 F Last Admin: 12/12/16 19:45 Dose: 200 mg Loratadine (Claritin) 10 mg PO DAILY [facility] Last Admin: 12/14/16 09:08 Dose: 10 mg Losartan Potassium (Cozaar) 25 mg PO DAILY [facility] Last Admin: 12/14/16 09:08 Dose: 25 mg Mirtazapine (Remeron) 22.5 mg PO HS [facility] Last Admin: 12/14/16 21:20 Dose: 22.5 mg Morphine Sulfate (Morphine Immediate Release Tab) 15 mg PO Q12 PRN PRN Reason: pain Pantoprazole Sodium (Protonix Inj) 40 mg IVP DAILY [facility] Last Admin: 12/14/16 18:40 Dose: 40 mg Rosuvastatin Calcium (Crestor) 2.5 mg PO HS [facility] Last Admin: 12/14/16 21:20 Dose: 2.5 mg Saccharomyces Boulardii (Florastor) 250 mg PO BID [facility] Last Admin: 12/14/16 17:08 Dose: 250 mg Tamsulosin HCl (Flomax) 0.4 mg PO DAILY [facility] Last Admin: 12/14/16 09:08 Dose: 0.4 mg - Labs Labs: 12/14/16 17:10 12/14/16 06:52 PT 15.5 SECONDS (9.7-12.2) H 12/10/16 20:43 INR 1.4 12/10/16 20:43 APTT 26 SECONDS (21-34) 12/10/16 20:43 - Constitutional Appears: No Acute Distress - Head Exam Head Exam: ATRAUMATIC, NORMAL INSPECTION, NORMOCEPHALIC - Eye Exam Pupil Exam: NORMAL ACCOMODATION - ENT Exam ENT Exam: Mucous Membranes Moist, Normal Exam - Neck Exam Neck Exam: Normal Inspection - Respiratory Exam Respiratory Exam: Clear to Ausculation Bilateral, NORMAL BREATHING PATTERN - Cardiovascular Exam Cardiovascular Exam: REGULAR RHYTHM - GI/Abdominal Exam GI & Abdominal Exam: Soft, Normal Bowel Sounds - Rectal Exam Rectal Exam: Deferred - Back Exam Back Exam: NORMAL INSPECTION, paraspinal tenderness - Neurological Exam Neurological Exam: Alert, Awake, CN II-XII Intact, Oriented x3 Neuro motor strength exam: Left Upper Extremity: 4, Right Upper Extremity: 4, Left Lower Extremity: 3, Right Lower Extremity: 3 - Psychiatric Exam Psychiatric exam: Normal Affect, Normal Mood Additional comments: ? depression - Skin Skin Exam: Dry, Intact, Normal Color Additional comments: check for anemia in AM Assessment and Plan (1) Pneumonia Status: Acute (2) Generalized weakness Assessment & Plan: improved. continue current mgt Status: Acute (3) Hypoxemia Assessment & Plan: appears stabilizing and O2 sat >95 lately on RA Status: Chronic (4) Shortness of breath on exertion Assessment & Plan: may be 2ndry to lack of intensive physical therapy, despite pt riding a stationary bike at home for ~ 1 hr. daily Status: Chronic
[2016-12-15] MEDS: Albuterol 0.083% Inhal Sol (2.5 mg/3 mL) UD INH SCH ×4 (01:21→19:05)
[2016-12-15 07:25] LABS: BASO % 0.3 % (0.0-2.0); EOS % 0.1 % (0.0-4.0); HEMATOCRIT 27.1 % (35.0-51.0); LYMPH # 0.6 K/uL (1.0-4.3); LYMPH % 7.7 % (20.0-40.0); MEAN CELL VOLUME 76.9 fL (80.0-94.0); MEAN CORPUSCULAR HEMOGLOBIN 24.4 pg (27.0-31.0); MEAN CORPUSCULAR HGB CONC 31.7 g/dL (33.0-37.0); MEAN PLATELET VOLUME 8.8 fL (7.2-11.7); MONO # 0.6 K/uL (0.0-0.8); MONO % 7.5 % (0.0-10.0); PLATELET COUNT 150 K/uL (130-400); RED CELL DISTRIBUTION WIDTH 18.3 % (11.5-14.5)
[2016-12-15 07:39] LABS: IRON 24 ug/dL (49-181)
[2016-12-15 07:43] LABS: CHLORIDE 100 mmol/L (98-107)
[2016-12-15 07:44] LABS: POTASSIUM 4.5 mmol/L (3.6-5.2); SODIUM 132 mmol/L (132-148)
[2016-12-15 07:46] LABS: CARBON DIOXIDE 23 mmol/L (22-30); GFR AFRICAN-AMERICAN 41
[2016-12-15 07:47] LABS: ALKALINE PHOSPHATASE 63 U/L (38-126); ALT/SGPT 23 U/L (21-72); AST/SGOT 31 U/L (17-59); BILIRUBIN,TOTAL 0.5 mg/dL (0.2-1.3); BLOOD UREA NITROGEN 64 mg/dL (9-20); CALCIUM 8.1 mg/dl (8.6-10.4); GLUCOSE,RANDOM 224 mg/dL (75-110); PHOSPHOROUS 4.6 mg/dL (2.5-4.5); TOTAL PROTEIN 5.8 g/dL (6.3-8.3)
[2016-12-15 07:48] LABS: MAGNESIUM 2.6 mg/dL (1.6-2.3)
[2016-12-15] MEDS: Budesonide 0.5 mg/2 ml Inhal Susp UD INH SCH ×2 (08:23→19:05)
[2016-12-15 09:05] LABS: FOLATE > 20.0 ng/mL
[2016-12-15 09:47] LABS: TOTAL CELLS COUNTED 100
[2016-12-15 09:48] LABS: NEUTROPHIL 77 % (50-75)
[2016-12-15 09:49] LABS: LARGE PLATELETS PRESENT
[2016-12-15] MEDS: Saccharomyces Boulardi 250 mg Cap PO SCH ×2 (10:30→18:08)
--- NOTE | 2016-12-15 13:55 | PN ---
DATE: 12/15/2016 SUBJECTIVE: The patient is seen. The patient is still feeling weak with easily short of breath and states that he is not eating well and that he is feeling weak. The patient is not complaining of deborah n. However, he has agreed to go for subacute rehab stating that he lives alone and he is still very weak. He is afraid that he will come back to the hospital. The patient reports that his stomach pro blems got better with Pepto-Bismol. The patient expresses desire to go for subacute when seen. VITAL SIGNS: Temperature is 97.3, pulse rate 76, blood pressure 124/70, respirations 20, oxygen sat is 90%. REVIEW OF SYSTEMS: GENERAL: The patient is alert, verbal, feeling weak, seen in his room with oxygen inhalation by lakeisha cormier. The patient states he feels weak, but alert and cognitively intact. SKIN: No diaphoresis. HEENT: No headache or dizziness. NECK: Supple. RESPIRATORY: Has off and on dyspnea. CARDIOVASCULAR: No chest pain. GASTROINTESTINAL: Appetite is still poor. EXTREMITIES: No tremors, but is complaining of weakness. MUSCULOSKELETAL: Feels weak. NEUROLOGIC: Alert, oriented x 3. GENITOURINARY: No urinary problems. MENTAL STATUS EXAMINATION: Elderly male who looks stated age. Alert, oriented x 3. Irritable at ti mes, anxious. Affect is reactive. Speech spontaneous. Thought process coherent. Thought content: The patient states he wants to go for subacute rehab. He also states that his appetite is still poo r, feels depressed at times and not sleeping well. We will take him off the morphine p.r.n. and we w ill try to increase the Remeron. Hopefully, it will help him sleep and also improve his appetite. A ttention and memory seem to be improving. Insight and judgment fair. Impulse control is fair. IMPRESSION: Mood disorder, secondary to medical problem as well as history of chronic obstructive pu lmonary disease. PLAN AND RECOMMENDATIONS: The patient seen, meds reviewed. As stated, we will discontinue the morph ine p.r.n. and then change the Remeron dose to 30 mg at bedtime. The patient is amenable to go for s ubacute rehab at this time. On review of his labs, patient is still not medically cleared at this ti me as yesterday his sodium was low, which was 124, but today it is back to normal. It is 132. The p atient is still awaiting medical clearance. Kel Capone MD cc: [id number] TT: 12/15/2016 13:54:58 Confirmation # [id number] Dictation # [id number] en
--- NOTE | 2016-12-15 15:42 | RAD ---
HISTORY: pneumonia response to tx COMPARISON: 2016 TECHNIQUE: Chest PA and lateral FINDINGS: LUNGS: Diffuse increased interstitial lung markings which may represent edema versus infiltrate versus chronic changes. Biapical pleural thickening with upper lobe granulomatous changes. Patchy left basilar airspace opacity with question trace left pleural effusion. Bilateral hilar prominence. Scattered nodularity in both lungs. PLEURA: As above. CARDIOVASCULAR: Cardiomegaly. Left-sided pacemaker. OSSEOUS STRUCTURES: No significant abnormalities. VISUALIZED UPPER ABDOMEN: Normal. OTHER FINDINGS: None. IMPRESSION: Diffuse increased interstitial lung markings which may represent edema versus infiltrate versus chronic changes. Biapical pleural thickening with upper lobe granulomatous changes. Patchy left basilar airspace opacity with question trace left pleural effusion. Bilateral hilar prominence. Scattered nodularity in both lungs.
--- NOTE | 2016-12-15 16:29 | CP.PCM.PN ---
Subjective - Date & Time of Evaluation Date of Evaluation: 12/15/16 Time of Evaluation: 16:27 - Subjective Subjective: feels better overall, still very weak Objective - Vital Signs/Intake and Output Vital Signs (last 24 hours): Temp Pulse Resp BP Pulse Ox 97.3 F L 76 20 124/70 90 L 12/15/16 08:55 12/15/16 08:55 12/15/16 08:55 12/15/16 08:55 12/15/16 08:55 Intake and Output: 12/15/16 12/15/16 06:59 18:59 Intake Total 400 600 Output Total 300 Balance 100 600 - Medications Medications: Current Medications Albuterol Sulfate (Albuterol 0.083% Inhal Nahomy (2.5 Mg/3 Ml) Ud) 2.5 mg INH RQ6 [facility] Last Admin: 12/15/16 13:48 Dose: 2.5 mg Aspirin (Ecotrin) 81 mg PO DAILY [facility] Last Admin: 12/11/16 10:37 Dose: 81 mg Bismuth Subsalicylate (Pepto Bismol) 262 mg PO Q6H PRN PRN Reason: dyspepsia Last Admin: 12/14/16 17:20 Dose: 262 mg Budesonide (Pulmicort Respules) 0.5 mg INH RQ12 [facility] Last Admin: 12/15/16 08:23 Dose: 0.5 mg Famotidine (Pepcid) 20 mg PO DAILY [facility] Last Admin: 12/15/16 10:34 Dose: 20 mg Ceftriaxone Sodium 500 mg/ (Sodium Chloride) 100 mls @ 100 mls/hr IVPB Q24H [facility] Last Admin: 12/14/16 16:30 Dose: 100 mls/hr Azithromycin 500 mg/ Sodium (Chloride) 250 mls @ 250 mls/hr IVPB DAILY@1830 [facility] Last Admin: 12/14/16 18:38 Dose: 250 mls/hr Ibuprofen (Motrin Oral Susp) 200 mg PO Q4 PRN PRN Reason: Fever >100.4 F Last Admin: 12/12/16 19:45 Dose: 200 mg Loratadine (Claritin) 10 mg PO DAILY [facility] Last Admin: 12/15/16 10:30 Dose: 10 mg Losartan Potassium (Cozaar) 25 mg PO DAILY [facility] Last Admin: 12/15/16 10:30 Dose: 25 mg Mirtazapine (Remeron) 30 mg PO [facility] Pantoprazole Sodium (Protonix Inj) 40 mg IVP DAILY [facility] Last Admin: 12/15/16 10:30 Dose: 40 mg Rosuvastatin Calcium (Crestor) 2.5 mg PO HS [facility] Last Admin: 12/14/16 21:20 Dose: 2.5 mg Saccharomyces Boulardii (Florastor) 250 mg PO BID [facility] Last Admin: 12/15/16 10:30 Dose: 250 mg Tamsulosin HCl (Flomax) 0.4 mg PO DAILY [facility] Last Admin: 12/15/16 10:30 Dose: 0.4 mg - Labs Labs: 12/15/16 07:20 12/15/16 07:20 PT 15.5 SECONDS (9.7-12.2) H 12/10/16 20:43 INR 1.4 12/10/16 20:43 APTT 26 SECONDS (21-34) 12/10/16 20:43 - Constitutional Appears: No Acute Distress, Chronically Ill - Head Exam Head Exam: ATRAUMATIC, NORMOCEPHALIC - Eye Exam Eye Exam: Normal appearance - ENT Exam ENT Exam: Mucous Membranes Moist - Neck Exam Neck Exam: Normal Inspection - Respiratory Exam Respiratory Exam: Decreased Breath Sounds - Cardiovascular Exam Cardiovascular Exam: +S1, +S2 - GI/Abdominal Exam GI & Abdominal Exam: Normal Bowel Sounds - Rectal Exam Rectal Exam: Deferred - Neurological Exam Neurological Exam: Abnormal Gait, Alert - Psychiatric Exam Psychiatric exam: Normal Affect, Normal Mood Assessment and Plan (1) Generalized weakness Status: Acute (2) Hypoxemia Status: Chronic (3) Shortness of breath on exertion Status: Chronic (4) Pulmonary asbestosis Status: Chronic
--- NOTE | 2016-12-15 17:07 | CP.PCM.PN ---
Subjective - Date & Time of Evaluation Date of Evaluation: 12/15/16 Time of Evaluation: 17:06 - Subjective Subjective: Pt doing well, almost all abnormal parameters within normal today. ?? wrong blood ascribed to pt?? > Pt has clearer eyes, and appears to have more energy than when he was admitted , but still very weak. TCU may be too hard for pt and may need BARBARA instead. > Appreciate SW and Case Mgt preparation of pt for discharge. Objective - Vital Signs/Intake and Output Vital Signs (last 24 hours): Temp Pulse Resp BP Pulse Ox 98 F 77 20 131/68 95 12/15/16 15:00 12/15/16 15:00 12/15/16 15:00 12/15/16 15:00 12/15/16 15:00 Intake and Output: 12/15/16 12/15/16 06:59 18:59 Intake Total 400 600 Output Total 300 Balance 100 600 - Medications Medications: Current Medications Albuterol Sulfate (Albuterol 0.083% Inhal Nahomy (2.5 Mg/3 Ml) Ud) 2.5 mg INH RQ6 [facility] Last Admin: 12/15/16 13:48 Dose: 2.5 mg Aspirin (Ecotrin) 81 mg PO DAILY [facility] Last Admin: 12/11/16 10:37 Dose: 81 mg Bismuth Subsalicylate (Pepto Bismol) 262 mg PO Q6H PRN PRN Reason: dyspepsia Last Admin: 12/14/16 17:20 Dose: 262 mg Budesonide (Pulmicort Respules) 0.5 mg INH RQ12 [facility] Last Admin: 12/15/16 08:23 Dose: 0.5 mg Famotidine (Pepcid) 20 mg PO DAILY [facility] Last Admin: 12/15/16 10:34 Dose: 20 mg Ferric Sodium Gluconate Complex (Ferrlecit) 125 mg IVPB DAILY [facility] Stop: 12/16/16 10:01 Ceftriaxone Sodium 500 mg/ (Sodium Chloride) 100 mls @ 100 mls/hr IVPB Q24H [facility] Last Admin: 12/14/16 16:30 Dose: 100 mls/hr Azithromycin 500 mg/ Sodium (Chloride) 250 mls @ 250 mls/hr IVPB DAILY@1830 [facility] Last Admin: 12/14/16 18:38 Dose: 250 mls/hr Ibuprofen (Motrin Oral Susp) 200 mg PO Q4 PRN PRN Reason: Fever >100.4 F Last Admin: 12/12/16 19:45 Dose: 200 mg Loratadine (Claritin) 10 mg PO DAILY [facility] Last Admin: 12/15/16 10:30 Dose: 10 mg Losartan Potassium (Cozaar) 25 mg PO DAILY [facility] Last Admin: 12/15/16 10:30 Dose: 25 mg Mirtazapine (Remeron) 30 mg PO [facility] Pantoprazole Sodium (Protonix Inj) 40 mg IVP DAILY [facility] Last Admin: 12/15/16 10:30 Dose: 40 mg Rosuvastatin Calcium (Crestor) 2.5 mg PO HS [facility] Last Admin: 12/14/16 21:20 Dose: 2.5 mg Saccharomyces Boulardii (Florastor) 250 mg PO BID [facility] Last Admin: 12/15/16 10:30 Dose: 250 mg Tamsulosin HCl (Flomax) 0.4 mg PO DAILY [facility] Last Admin: 12/15/16 10:30 Dose: 0.4 mg - Labs Labs: 12/15/16 07:20 12/15/16 07:20 PT 15.5 SECONDS (9.7-12.2) H 12/10/16 20:43 INR 1.4 12/10/16 20:43 APTT 26 SECONDS (21-34) 12/10/16 20:43 - Constitutional Appears: No Acute Distress - Head Exam Head Exam: NORMAL INSPECTION, NORMOCEPHALIC - Eye Exam Eye Exam: EOMI, Normal appearance, PERRL Pupil Exam: NORMAL ACCOMODATION - ENT Exam ENT Exam: Normal Exam - Neck Exam Neck Exam: Normal Inspection - Respiratory Exam Respiratory Exam: Clear to Ausculation Bilateral, NORMAL BREATHING PATTERN - Cardiovascular Exam Cardiovascular Exam: REGULAR RHYTHM (paced rhythm) - GI/Abdominal Exam GI & Abdominal Exam: Soft, Normal Bowel Sounds - Rectal Exam Rectal Exam: Deferred - Extremities Exam Extremities Exam: Normal Inspection - Back Exam Back Exam: NORMAL INSPECTION - Neurological Exam Neurological Exam: Alert, Awake, CN II-XII Intact, Oriented x3 Neuro motor strength exam: Left Upper Extremity: 3, Right Upper Extremity: 3, Left Lower Extremity: 3, Right Lower Extremity: 3 - Psychiatric Exam Psychiatric exam: Normal Affect, Normal Mood - Skin Skin Exam: Dry, Intact, Normal Color, Warm Assessment and Plan (1) Pneumonia Assessment & Plan: improving. says his breathing better but did start having SOB when he walked the hallways today with PT Status: Acute (2) Generalized weakness Assessment & Plan: pt unsteady in gait and since he lives independently, may not be able to carry out ADLs alone. A BARBARA stint may be necessary. Discussed with pt possible rehab places to go: [facility], [facility], [facility] in that order. Status: Acute (3) Hypoxemia Assessment & Plan: will need home O2. obtain ABG post ambulation prior to discharge Status: Chronic (4) Shortness of breath on exertion Assessment & Plan: tolerance and endurance improved with hospitalization but safety an issue if he goes home now as he still desaturates with ordinary tasks like walking. Status: Chronic
[2016-12-15] MEDS: Azithromycin 500 MG in Sodium Chloride 0.9% 250 ML IVPB SCH (18:16)
[2016-12-15] MEDS: Ferric Sodium Gluconat Complex 62.5 mg/5 ml Vial IVPB SCH (21:59)
[2016-12-15] MEDS: Rosuvastatin Calcium 2.5 mg Tab PO SCH (23:08)
[2016-12-16] MEDS: Albuterol 0.083% Inhal Sol (2.5 mg/3 mL) UD INH SCH ×2 (01:21→08:16)
[2016-12-16 08:08] LABS: BASO % 0.1 % (0.0-2.0); EOS # 0.2 K/uL (0.0-0.7); EOS % 3.2 % (0.0-4.0); HEMATOCRIT 26.2 % (35.0-51.0); LYMPH # 0.8 K/uL (1.0-4.3); LYMPH % 16.2 % (20.0-40.0); MEAN CELL VOLUME 77.5 fL (80.0-94.0); MEAN CORPUSCULAR HEMOGLOBIN 25.5 pg (27.0-31.0); MONO # 0.6 K/uL (0.0-0.8); MONO % 11.9 % (0.0-10.0); NRBC % 0.2 % (0.0-2.0); RED CELL DISTRIBUTION WIDTH 18.6 % (11.5-14.5)
[2016-12-16] MEDS: Budesonide 0.5 mg/2 ml Inhal Susp UD INH SCH ×2 (08:16→20:35)
[2016-12-16 08:17] LABS: POTASSIUM 4.7 mmol/L (3.6-5.2)
[2016-12-16 08:19] LABS: ALB/GLOB RATIO 0.9 (1.0-2.1); BILIRUBIN,TOTAL 0.5 mg/dL (0.2-1.3); TOTAL PROTEIN 5.7 g/dL (6.3-8.3)
[2016-12-16 08:20] LABS: MAGNESIUM 2.5 mg/dL (1.6-2.3); PHOSPHOROUS 4.1 mg/dL (2.5-4.5)
[2016-12-16] MEDS: Saccharomyces Boulardi 250 mg Cap PO SCH ×2 (09:53→18:03)
[2016-12-16] MEDS: Ferric Sodium Gluconat Complex 62.5 mg/5 ml Vial IVPB SCH (09:54)
--- NOTE | 2016-12-16 10:45 | PN ---
DATE: 12/16/2016 SUBJECTIVE: The patient is seen. The patient is doing much better clinically. He is still interest ed to go for subacute rehab. He says he slept better last night. His appetite is a little better. The patient is hopeful that he will be able to go for subacute rehab. Clinically, much improved comp ared to the last few days. He is less short of breath. VITAL SIGNS: Temperature is 97.7, pulse rate 78, blood pressure 140/72, respirations 20, oxygen sat is 96%. REVIEW OF SYSTEMS: GENERAL: The patient looks much clinically improved, seen in his room, smiling when seen, less irrit able. SKIN: No diaphoresis. HEENT: No headache or dizziness. NECK: Supple. RESPIRATORY: He is breathing much easier and not coughing. CARDIOVASCULAR: No chest pain. GASTROINTESTINAL: Appetite is poor, but patient is starting to eat. MUSCULOSKELETAL: Feels weak. EXTREMITIES: Gait is still unsteady. NEUROLOGIC: Alert and oriented x 3. GENITOURINARY: No urinary problems. MENTAL STATUS EXAMINATION: Elderly male who looks stated age. Alert, oriented x 3. Mood is much ca lmer. Affect is reactive. Speech spontaneous. Thought process coherent. Thought content: No over t psychosis. No suicidal or homicidal ideation. Attention and memory seem to be fair. Insight and judgment fair. Impulse control is fair. IMPRESSION: Mood disorder, secondary to medical problems as well as history of chronic obstructive p ulmonary disease. PLAN AND RECOMMENDATIONS: The patient seen, meds reviewed. Continue Remeron 30 mg at bedtime. The patient wants to go for subacute rehab for reconditioning, just awaiting medical clearance. Psych wi se, the patient may go for subacute rehabilitation once medically cleared by Dr. Underwood. Kel Capone MD cc: [id number] TT: 12/16/2016 10:45:26 Confirmation # [id number] Dictation # [id number] en
[2016-12-16 15:06] LABS: ABG ALLEN TEST POS; ARTERIAL BLOOD HGB O2 SAT 82.2 % (95.0-98.0); CARBOXYHEMOGLOBIN 2.3 % (0.5-1.5); DRAW SITE RR; HHB 14.4 % (0.0-5.0); METHEMOGLOBIN 1.1 % (0.0-3.0)
--- NOTE | 2016-12-16 16:59 | CP.PCM.PN ---
Subjective - Date & Time of Evaluation Date of Evaluation: 12/16/16 Time of Evaluation: 16:56 - Subjective Subjective: Pt resting comfortably in bed. Called by nurse on pt's pO2 on ABG after ambulation on room air to simulate home conditions. Pt's pO2 at 39. Sputum culture grew yeast on examination. Awaiting speciation by Microbiology. > Pt also reports no signif BM for 3 days. Ordered meds for pt. > Will continue IV abx at [facility] if pt able to get a bed. Advise to continue heplock on transfer if pt remains stable. Objective - Vital Signs/Intake and Output Vital Signs (last 24 hours): Temp Pulse Resp BP Pulse Ox 97.7 F 78 20 140/73 96 12/16/16 07:26 12/16/16 07:26 12/16/16 07:26 12/16/16 07:26 12/16/16 07:26 Intake and Output: 12/16/16 12/16/16 06:59 18:59 Intake Total 800 700 Output Total 700 Balance 100 700 - Medications Medications: Current Medications Aspirin (Ecotrin) 81 mg PO DAILY [facility] Last Admin: 12/11/16 10:37 Dose: 81 mg Bismuth Subsalicylate (Pepto Bismol) 262 mg PO Q6H PRN PRN Reason: dyspepsia Last Admin: 12/14/16 17:20 Dose: 262 mg Budesonide (Pulmicort Respules) 0.5 mg INH RQ12 [facility] Last Admin: 12/16/16 08:16 Dose: 0.5 mg Famotidine (Pepcid) 20 mg PO DAILY [facility] Last Admin: 12/16/16 09:54 Dose: 20 mg Ceftriaxone Sodium 500 mg/ (Sodium Chloride) 100 mls @ 100 mls/hr IVPB Q24H [facility] Last Admin: 12/15/16 18:08 Dose: 100 mls/hr Azithromycin 500 mg/ Sodium (Chloride) 250 mls @ 250 mls/hr IVPB DAILY@1830 [facility] Last Admin: 12/15/16 18:16 Dose: 250 mls/hr Fluconazole (Diflucan Iv 400mg/200ml Ns) 200 mls @ 100 mls/hr IVPB ONCE ONE Stop: 12/16/16 19:59 Fluconazole (Diflucan Iv 200 Mg/100 Ml Ns) 100 mls @ 100 mls/hr IVPB Q24H [facility] Ibuprofen (Motrin Oral Susp) 200 mg PO Q4 PRN PRN Reason: Fever >100.4 F Last Admin: 12/12/16 19:45 Dose: 200 mg Loratadine (Claritin) 10 mg PO DAILY [facility] Last Admin: 12/16/16 09:54 Dose: 10 mg Losartan Potassium (Cozaar) 25 mg PO DAILY [facility] Last Admin: 12/16/16 09:54 Dose: 25 mg Mirtazapine (Remeron) 30 mg PO HS [facility] Last Admin: 12/15/16 23:09 Dose: 30 mg Pantoprazole Sodium (Protonix Inj) 40 mg IVP DAILY [facility] Last Admin: 12/16/16 09:54 Dose: 40 mg Rosuvastatin Calcium (Crestor) 2.5 mg PO HS [facility] Last Admin: 12/15/16 23:08 Dose: 2.5 mg Saccharomyces Boulardii (Florastor) 250 mg PO BID [facility] Last Admin: 12/16/16 09:53 Dose: 250 mg Tamsulosin HCl (Flomax) 0.4 mg PO DAILY [facility] Last Admin: 12/16/16 09:54 Dose: 0.4 mg - Labs Labs: 12/16/16 07:49 12/16/16 07:49 PT 15.5 SECONDS (9.7-12.2) H 12/10/16 20:43 INR 1.4 12/10/16 20:43 APTT 26 SECONDS (21-34) 12/10/16 20:43 - Constitutional Appears: No Acute Distress (but tachypneic after ambulating a short distance) - Head Exam Head Exam: NORMAL INSPECTION, NORMOCEPHALIC - Eye Exam Eye Exam: EOMI, Normal appearance Pupil Exam: NORMAL ACCOMODATION - ENT Exam ENT Exam: Mucous Membranes Moist, Normal Exam - Neck Exam Neck Exam: Normal Inspection - Respiratory Exam Respiratory Exam: Clear to Ausculation Bilateral, NORMAL BREATHING PATTERN - Cardiovascular Exam Cardiovascular Exam: REGULAR RHYTHM - GI/Abdominal Exam GI & Abdominal Exam: Soft, Normal Bowel Sounds - Rectal Exam Rectal Exam: Deferred - Extremities Exam Extremities Exam: Normal Inspection - Back Exam Back Exam: NORMAL INSPECTION - Neurological Exam Neurological Exam: Alert, Awake, CN II-XII Intact, Oriented x3 Neuro motor strength exam: Left Upper Extremity: 4, Right Upper Extremity: 4, Left Lower Extremity: 4, Right Lower Extremity: 4 - Psychiatric Exam Psychiatric exam: Normal Affect, Normal Mood - Skin Skin Exam: Dry, Intact Assessment and Plan (1) Pneumonia Assessment & Plan: t/c fungal etiology. + yeast on sputum culture. start fluconazole IV stat loading dose, then qd Status: Acute (2) Generalized weakness Assessment & Plan: for PT Status: Acute (3) Hypoxemia Assessment & Plan: severe after light exertion Status: Chronic (4) Shortness of breath on exertion Assessment & Plan: persistent. maybe 2ndry to fungal infection Status: Chronic
[2016-12-16] MEDS ORDERED: Fluconazole IV 400mg/200ml NS 200 ML IVPB ONE ×2 (18:00→22:00)
[2016-12-16] MEDS: Azithromycin 500 MG in Sodium Chloride 0.9% 250 ML IVPB SCH (18:30)
--- NOTE | 2016-12-16 19:39 | CP.PCM.PN ---
Subjective - Date & Time of Evaluation Date of Evaluation: 12/16/16 Time of Evaluation: 19:35 - Subjective Subjective: BREATHING NOT LABORED AT REST, HOWEVER VERY WEAK, NEEDS PHYSICAL THERAPY O2 39 ON ROOM AIR SaO2 96 % ON 2 L/M NC WILL NEED HOME O2 @ 2 L/M NC CONTINOUS OFFICE EVALUATION WITH 6MW IN THE PAST DID NOT REVEAL SIGNIFICANT HYPOXEMIA REQUIRING O2 Objective - Vital Signs/Intake and Output Vital Signs (last 24 hours): Temp Pulse Resp BP Pulse Ox 98.5 F 79 20 130/76 96 12/16/16 15:00 12/16/16 15:00 12/16/16 15:00 12/16/16 15:00 12/16/16 15:00 Intake and Output: 12/16/16 12/17/16 18:59 06:59 Intake Total 700 Balance 700 - Medications Medications: Current Medications Aspirin (Ecotrin) 81 mg PO DAILY [facility] Last Admin: 12/11/16 10:37 Dose: 81 mg Bismuth Subsalicylate (Pepto Bismol) 262 mg PO Q6H PRN PRN Reason: dyspepsia Last Admin: 12/14/16 17:20 Dose: 262 mg Budesonide (Pulmicort Respules) 0.5 mg INH RQ12 [facility] Last Admin: 12/16/16 08:16 Dose: 0.5 mg Famotidine (Pepcid) 20 mg PO DAILY [facility] Last Admin: 12/16/16 09:54 Dose: 20 mg Ceftriaxone Sodium 500 mg/ (Sodium Chloride) 100 mls @ 100 mls/hr IVPB Q24H [facility] Last Admin: 12/16/16 17:00 Dose: 100 mls/hr Azithromycin 500 mg/ Sodium (Chloride) 250 mls @ 250 mls/hr IVPB DAILY@1830 [facility] Last Admin: 12/15/16 18:16 Dose: 250 mls/hr Fluconazole (Diflucan Iv 400mg/200ml Ns) 200 mls @ 100 mls/hr IVPB ONCE ONE Stop: 12/16/16 19:59 Fluconazole (Diflucan Iv 200 Mg/100 Ml Ns) 100 mls @ 100 mls/hr IVPB Q24H [facility] Ibuprofen (Motrin Oral Susp) 200 mg PO Q4 PRN PRN Reason: Fever >100.4 F Last Admin: 12/12/16 19:45 Dose: 200 mg Loratadine (Claritin) 10 mg PO DAILY [facility] Last Admin: 12/16/16 09:54 Dose: 10 mg Losartan Potassium (Cozaar) 25 mg PO DAILY [facility] Last Admin: 12/16/16 09:54 Dose: 25 mg Mirtazapine (Remeron) 30 mg PO HS [facility] Last Admin: 12/15/16 23:09 Dose: 30 mg Pantoprazole Sodium (Protonix Inj) 40 mg IVP DAILY [facility] Last Admin: 12/16/16 09:54 Dose: 40 mg Rosuvastatin Calcium (Crestor) 2.5 mg PO HS [facility] Last Admin: 12/15/16 23:08 Dose: 2.5 mg Saccharomyces Boulardii (Florastor) 250 mg PO BID [facility] Last Admin: 12/16/16 18:03 Dose: 250 mg Tamsulosin HCl (Flomax) 0.4 mg PO DAILY [facility] Last Admin: 12/16/16 09:54 Dose: 0.4 mg - Labs Labs: 12/16/16 07:49 12/16/16 07:49 PT 15.5 SECONDS (9.7-12.2) H 12/10/16 20:43 INR 1.4 12/10/16 20:43 APTT 26 SECONDS (21-34) 12/10/16 20:43 - Constitutional Appears: Chronically Ill - Head Exam Head Exam: ATRAUMATIC, NORMOCEPHALIC - Eye Exam Eye Exam: Normal appearance - ENT Exam ENT Exam: Mucous Membranes Moist - Neck Exam Neck Exam: Normal Inspection - Respiratory Exam Respiratory Exam: Decreased Breath Sounds, Rales - Cardiovascular Exam Cardiovascular Exam: +S1, +S2 - GI/Abdominal Exam GI & Abdominal Exam: Normal Bowel Sounds - Rectal Exam Rectal Exam: Deferred - Neurological Exam Neurological Exam: Abnormal Gait, Alert, Awake, Oriented x3 - Psychiatric Exam Psychiatric exam: Normal Affect, Normal Mood - Skin Skin Exam: Intact Assessment and Plan (1) Generalized weakness Status: Acute (2) Hypoxemia Status: Chronic (3) Shortness of breath on exertion Status: Chronic (4) Pulmonary asbestosis Status: Chronic
[2016-12-16] MEDS: Rosuvastatin Calcium 2.5 mg Tab PO SCH (21:23)
[2016-12-17] MEDS: Saccharomyces Boulardi 250 mg Cap PO SCH ×2 (09:46→17:46)
[2016-12-17 13:51] LABS: BASO % 0.2 % (0.0-2.0); EOS # 0.3 K/uL (0.0-0.7); EOS % 5.6 % (0.0-4.0); HEMATOCRIT 27.5 % (35.0-51.0); LYMPH % 18.6 % (20.0-40.0); MEAN CELL VOLUME 77.9 fL (80.0-94.0); MEAN CORPUSCULAR HEMOGLOBIN 24.6 pg (27.0-31.0); MEAN CORPUSCULAR HGB CONC 31.5 g/dL (33.0-37.0); MEAN PLATELET VOLUME 8.4 fL (7.2-11.7); MONO # 0.5 K/uL (0.0-0.8); MONO % 10.2 % (0.0-10.0); NRBC % 0.1 % (0.0-2.0); RED CELL DISTRIBUTION WIDTH 18.8 % (11.5-14.5); WHITE BLOOD COUNT 5.2 K/uL (4.8-10.8)
[2016-12-17] MEDS: Budesonide 0.5 mg/2 ml Inhal Susp UD INH SCH (14:30)
--- NOTE | 2016-12-17 15:15 | PN ---
DATE: 12/17/2016 SUBJECTIVE: The patient is seen. The patient continues to improve clinically. The patient will be going today for subacute rehab at [facility]. He was initially thinking that he will be going to the [facility] but patient will be going to the [facility]. The patient is danielito erating Remeron 30 mg at bedtime. He said he is feeling better, he is sleeping better, less dyspneic . VITAL SIGNS: Temperature is 98.1, pulse rate is 60, blood pressure 158/70, respirations 20, oxygen s ats 96%. REVIEW OF SYSTEMS: GENERAL: The patient is alert, oriented x 3, breathing much easier. Seen in his room. He said he i s feeling better. He said he will go to whatever subacute rehab that he is being referred to, SKIN: No diaphoresis. HEENT: No headache, no dizziness. NECK: Supple. RESPIRATORY: Breathing much easier. CARDIOVASCULAR: No chest pain. GASTROINTESTINAL: Appetite is improving. MUSCULOSKELETAL: Feels weak. NEUROLOGIC: Alert, oriented x 3. GENITOURINARY: No urinary problems. MENTAL STATUS EXAMINATION: Elderly male who looks stated age. Alert, oriented x 3. Mood is much ca lmer. Affect is reactive. Speech spontaneous. Thought process coherent. Thought content: The pat ieada is still willing to go for subacute rehab. No psychosis. No suicidal or homicidal ideation. A ttention and memory seem to be fair. Insight and judgment fair. Impulse control is fair. IMPRESSION: Mood disorder secondary to medical problems. PLAN AND RECOMMENDATIONS: The patient seen, meds reviewed. Continue Remeron 30 mg at bedtime. Cont inue present management. Psych puri, the patient is stable to go for subacute rehab at [facility]. Kel Capone MD cc: [id number] TT: 12/17/2016 15:15:20 Confirmation # [id number] Dictation # [id number]
[2016-12-17] MEDS ORDERED: Fluconazole IV 200mg/100 ml NS 100 ML IVPB SCH (17:00)
--- NOTE | 2016-12-17 17:19 | CP.PCM.PN ---
Subjective - Date & Time of Evaluation Date of Evaluation: 12/17/16 Time of Evaluation: 11:00 - Subjective Subjective: Alert, awake, no sob or chest pains. Objective - Vital Signs/Intake and Output Vital Signs (last 24 hours): Temp Pulse Resp BP Pulse Ox 98.1 F 60 20 158/70 H 96 12/17/16 08:00 12/17/16 08:00 12/17/16 08:00 12/17/16 08:00 12/17/16 08:00 - Medications Medications: Current Medications Aspirin (Ecotrin) 81 mg PO DAILY [facility] Last Admin: 12/11/16 10:37 Dose: 81 mg Bismuth Subsalicylate (Pepto Bismol) 262 mg PO Q6H PRN PRN Reason: dyspepsia Last Admin: 12/14/16 17:20 Dose: 262 mg Budesonide (Pulmicort Respules) 0.5 mg INH RQ12 [facility] Last Admin: 12/17/16 14:30 Dose: Not Given Famotidine (Pepcid) 20 mg PO DAILY [facility] Last Admin: 12/17/16 09:45 Dose: 20 mg Ceftriaxone Sodium 500 mg/ (Sodium Chloride) 100 mls @ 100 mls/hr IVPB Q24H [facility] Last Admin: 12/17/16 16:28 Dose: Not Given Azithromycin 500 mg/ Sodium (Chloride) 250 mls @ 250 mls/hr IVPB DAILY@1830 [facility] Last Admin: 12/16/16 18:30 Dose: 250 mls/hr Fluconazole (Diflucan Iv 200 Mg/100 Ml Ns) 100 mls @ 100 mls/hr IVPB Q24H [facility] Last Admin: 12/17/16 16:27 Dose: Not Given Ibuprofen (Motrin Oral Susp) 200 mg PO Q4 PRN PRN Reason: Fever >100.4 F Last Admin: 12/12/16 19:45 Dose: 200 mg Loratadine (Claritin) 10 mg PO DAILY [facility] Last Admin: 12/17/16 09:45 Dose: 10 mg Losartan Potassium (Cozaar) 25 mg PO DAILY [facility] Last Admin: 12/17/16 09:45 Dose: 25 mg Mirtazapine (Remeron) 30 mg PO HS [facility] Last Admin: 12/16/16 21:23 Dose: 30 mg Pantoprazole Sodium (Protonix Inj) 40 mg IVP DAILY [facility] Last Admin: 12/17/16 09:46 Dose: 40 mg Rosuvastatin Calcium (Crestor) 2.5 mg PO HS [facility] Last Admin: 12/16/16 21:23 Dose: 2.5 mg Saccharomyces Boulardii (Florastor) 250 mg PO BID [facility] Last Admin: 12/17/16 09:46 Dose: 250 mg Tamsulosin HCl (Flomax) 0.4 mg PO DAILY [facility] Last Admin: 12/17/16 09:45 Dose: 0.4 mg - Labs Labs: 12/17/16 13:38 12/16/16 07:49 PT 15.5 SECONDS (9.7-12.2) H 12/10/16 20:43 INR 1.4 12/10/16 20:43 APTT 26 SECONDS (21-34) 12/10/16 20:43 Assessment and Plan - Assessment and Plan (Free Text) Assessment: Patient is seen and examined. Alert, awake, no sob or chest pains. D/W DR Underwood, patient has bed at [facility], plan to discharge on iv antibiotics today.
[2016-12-17 17:22] VITALS: BP 133/68; PULSE 70; TEMP 98.2; O2SAT 97
--- NOTE | 2016-12-17 17:26 | PCM.HF ---
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
--- NOTE | 2016-12-17 23:26 | CP.PCM.DIS ---
Provider - Provider Date of Admission: 12/10/16 22:54 Attending physician: Torsten Underwood MD Primary care physician: Dr. Torsten Underwood Consults: PUlmonary: Dr. Cherry Cabrera Time Spent in preparation of Discharge (in minutes): 45 Diagnosis - Discharge Diagnosis (1) Pneumonia Status: Acute Comment: may be fungal in nature, hence the slow recovery. started on fluconazole yesterday and awaitnig response (2) Generalized weakness Status: Acute Priority: High (3) Hypoxemia Status: Chronic Priority: High Comment: will def needs [facility] placement Hospital Course - Lab Results Lab Results: Micro Results 12/12/16 15:00 Blood Blood Culture - Final NO GROWTH AFTER 5 DAYS 12/12/16 15:00 Blood Gram Stain - Final 12/12/16 16:00 Blood Blood Culture - Final NO GROWTH AFTER 5 DAYS 12/12/16 16:00 Blood Gram Stain - Final TEST NOT PERFORMED 12/14/16 03:20 Sputum Gram Stain - Final 12/14/16 03:20 Sputum Sputum Culture - Final Yeast Species 12/12/16 Unknown Urine Urine Culture - Final No Growth (<1,000 CFU/ML) Most Recent Lab Values WBC 5.2 K/uL (4.8-10.8) 12/17/16 13:38 RBC 3.52 Mil/uL (4.40-5.90) L 12/17/16 13:38 Hgb 8.7 g/dL (12.0-18.0) L 12/17/16 13:38 Hct 27.5 % (35.0-51.0) L 12/17/16 13:38 MCV 77.9 fL (80.0-94.0) L 12/17/16 13:38 MCH 24.6 pg (27.0-31.0) L 12/17/16 13:38 MCHC 31.5 g/dL (33.0-37.0) L 12/17/16 13:38 RDW 18.8 % (11.5-14.5) H 12/17/16 13:38 Plt Count 140 K/uL (130-400) 12/17/16 13:38 MPV 8.4 fL (7.2-11.7) 12/17/16 13:38 Neut % (Auto) 65.4 % (50.0-75.0) 12/17/16 13:38 Lymph % (Auto) 18.6 % (20.0-40.0) L 12/17/16 13:38 Gila % (Auto) 10.2 % (0.0-10.0) H 12/17/16 13:38 Eos % (Auto) 5.6 % (0.0-4.0) H 12/17/16 13:38 Baso % (Auto) 0.2 % (0.0-2.0) 12/17/16 13:38 Neut # 3.4 K/uL (1.8-7.0) 12/17/16 13:38 Lymph # 1.0 K/uL (1.0-4.3) 12/17/16 13:38 Gila # 0.5 K/uL (0.0-0.8) 12/17/16 13:38 Eos # 0.3 K/uL (0.0-0.7) 12/17/16 13:38 Baso # 0.0 K/uL (0.0-0.2) 12/17/16 13:38 Neutrophils % (Manual) 77 % (50-75) H 12/15/16 07:20 Band Neutrophils % 3 % (0-2) H 12/15/16 07:20 Lymphocytes % (Manual) 10 % (20-40) L 12/15/16 07:20 Monocytes % (Manual) 10 % (0-10) 12/15/16 07:20 Eosinophils % (Manual) 1 % (0-4) 12/12/16 14:04 Platelet Estimate Normal (NORMAL) 12/15/16 07:20 Large Platelets Present 12/15/16 07:20 Polychromasia Slight 12/14/16 17:10 Hypochromasia (manual) Slight 12/15/16 07:20 Poikilocytosis (manual Slight 12/15/16 07:20 Anisocytosis (manual) Slight 12/15/16 07:20 Microcytosis (manual) Slight 12/15/16 07:20 Tear Drop Cells Slight 12/14/16 06:52 Ovalocytes Slight 12/15/16 07:20 PT 15.5 SECONDS (9.7-12.2) H 12/10/16 20:43 INR 1.4 12/10/16 20:43 APTT 26 SECONDS (21-34) 12/10/16 20:43 D-Dimer, Quantitative 1978 ng/mlDDU (0-243) H 12/10/16 20:43 Puncture Site Rr 12/16/16 15:02 pCO2 28 mm/Hg (35-45) L 12/16/16 15:02 pO2 39 mm/Hg (80-100) L* 12/16/16 15:02 HCO3 22.6 mmol/L (21-28) 12/16/16 15:02 ABG pH 7.47 (7.35-7.45) H 12/16/16 15:02 ABG Total CO2 21.3 mmol/L (22-28) L 12/16/16 15:02 ABG O2 Saturation 85.1 % (95-98) L 12/16/16 15:02 ABG Base Excess -2.7 mmol/L (-2.0-3.0) L 12/16/16 15:02 ABG Hemoglobin 8.3 g/dL (11.7-17.4) L 12/16/16 15:02 ABG Carboxyhemoglobin 2.3 % (0.5-1.5) H 12/16/16 15:02 POC ABG HHb (Measured) 14.4 % (0.0-5.0) H 12/16/16 15:02 ABG Methemoglobin 1.1 % (0.0-3.0) 12/16/16 15:02 Indra Test Pos 12/16/16 15:02 ABG Potassium 3.6 mmol/L (3.6-5.2) 12/10/16 20:50 A-a O2 Difference 76.0 mm/Hg 12/16/16 15:02 Respiratory Index 1.9 12/16/16 15:02 Hgb O2 Saturation 82.2 % (95.0-98.0) L 12/16/16 15:02 Sodium 135.0 mmol/l (132-148) 12/10/16 20:50 Chloride 108.0 mmol/L (98-107) H 12/10/16 20:50 Glucose 155 mg/dl (75-110) H 12/10/16 20:50 Lactate 0.7 mmol/L (0.7-2.1) 12/10/16 20:50 Liter Flow 2.0 12/10/16 20:50 FiO2 21.0 % 12/16/16 15:02 Crit Value Called To Dorys de la torre 12/16/16 15:02 Crit Value Called By Soni linares technical trainer 12/16/16 15:02 Crit Value Read Back Y 12/16/16 15:02 Blood Gas Notified Time 1506 12/16/16 15:02 Sodium 138 mmol/L (132-148) 12/16/16 07:49 Potassium 4.7 mmol/L (3.6-5.2) 12/16/16 07:49 Chloride 105 mmol/L (98-107) 12/16/16 07:49 Carbon Dioxide 24 mmol/L (22-30) 12/16/16 07:49 Anion Gap 13 (10-20) 12/16/16 07:49 BUN 46 mg/dL (9-20) H 12/16/16 07:49 Creatinine 1.7 MG/DL (0.8-1.5) H 12/16/16 07:49 Est GFR ( Amer) 46 12/16/16 07:49 Est GFR (Non-Af Amer) 38 12/16/16 07:49 POC Glucose (mg/dL) 181 mg/dL (65-110) H 12/16/16 20:56 Random Glucose 170 mg/dL (75-110) H 12/16/16 07:49 Calcium 8.0 mg/dl (8.6-10.4) L 12/16/16 07:49 Phosphorus 4.1 mg/dL (2.5-4.5) 12/16/16 07:49 Magnesium 2.5 mg/dL (1.6-2.3) H 12/16/16 07:49 Iron 24 ug/dL (49-181) L 12/15/16 07:20 TIBC 266 ug/dL (250-450) 12/15/16 07:20 % Saturation 9 (20-55) L 12/15/16 07:20 Ferritin 54.0 ng/mL 12/15/16 07:20 Total Bilirubin 0.5 mg/dL (0.2-1.3) 12/16/16 07:49 AST 28 U/L (17-59) 12/16/16 07:49 ALT 24 U/L (21-72) 12/16/16 07:49 Alkaline Phosphatase 60 U/L (38-126) 12/16/16 07:49 Troponin I 0.0500 ng/mL (0.00-0.120) 12/10/16 20:43 NT-Pro-B Natriuret Pep 1310 pg/mL (0-900) H 12/16/16 07:49 Total Protein 5.7 g/dL (6.3-8.3) L 12/16/16 07:49 Albumin 2.7 g/dL (3.5-5.0) L 12/16/16 07:49 Globulin 3.0 gm/dL (2.2-3.9) 12/16/16 07:49 Albumin/Globulin Ratio 0.9 (1.0-2.1) L 12/16/16 07:49 Carcinoembryonic Ag 5.7 ng/mL (0-3.0) H 12/12/16 06:20 Vitamin B12 > 1000 pg/mL (239-931) H 12/15/16 07:20 Folate > 20.0 ng/mL 12/15/16 07:20 TSH 3rd Generation 1.72 mIU/L (0.46-4.68) 12/10/16 20:43 Arterial Blood Potassium 3.6 mmol/L (3.6-5.2) 12/10/16 20:50 Urine Color Yellow (YELLOW) 12/12/16 17:29 Urine Clarity Hazy (Clear) 12/12/16 17:29 Urine pH 5.0 (5.0-8.0) 12/12/16 17:29 Ur Specific [place] 1.015 (1.003-1.030) 12/12/16 17:29 Urine Protein 1+ mg/dL (NEGATIVE) H 12/12/16 17:29 Urine Glucose (UA) Normal mg/dL (Normal) 12/12/16 17:29 Urine Ketones Negative mg/dL (NEGATIVE) 12/12/16 17:29 Urine Blood Trace (NEGATIVE) H 12/12/16 17:29 Urine Nitrate Negative (NEGATIVE) 12/12/16 17:29 Urine Bilirubin Negative (NEGATIVE) 12/12/16 17:29 Urine Urobilinogen Normal mg/dL (0.2-1.0) 12/12/16 17:29 Ur Leukocyte Esterase Neg Tessie/uL (Negative) 12/12/16 17:29 Urine WBC (Auto) < 1 /hpf (0-5) 12/12/16 17:29 Urine RBC (Auto) 5 /hpf (0-3) H 12/12/16 17:29 Ur Squamous Epith Cells 2 /hpf (0-5) 12/12/16 17:29 Ur Transition Epith Cell < 1 /hpf (0-3) 12/10/16 23:36 Urine Bacteria Rare (<OCC) 12/12/16 17:29 Hyaline Casts 6-10 /lpf (0-2) H 12/10/16 23:36 Stool Occult Blood Positive (NEGATIVE) H 12/15/16 08:25 C. difficile Ag & Toxin Negative (NEGATIVE) 12/14/16 01:51 Blood Type A POSITIVE 12/10/16 23:46 Antibody Screen Negative 12/10/16 23:46 Discharge Exam - Head Exam Head Exam: NORMAL INSPECTION, NORMOCEPHALIC - Eye Exam Eye Exam: Normal appearance Pupil Exam: NORMAL ACCOMODATION - ENT Exam ENT Exam: Normal Exam - Neck Exam Neck exam: Full Rom - Respiratory Exam Respiratory Exam: Chest Wall Tenderness, Clear to PA & Lateral, Prolonged Expiratory Phase, NORMAL BREATHING PATTERN - Cardiovascular Exam Cardiovascular Exam: Irregular Rhythm ( [id number] ) - GI/Abdominal Exam GI & Abdominal Exam: Normal Bowel Sounds ( ) - Rectal Exam Rectal Exam: Deferred - Back Exam Back exam: NORMAL INSPECTION - Neurological Exam Neurological exam: Alert, CN II-XII Intact, Normal Gait, Oriented x3 - Psychiatric Exam Psychiatric exam: Normal Affect, Normal Mood - Skin Skin Exam: Dry, Intact, Normal Color, Warm Discharge Plan - Discharge Medications Prescriptions: Simvastatin 5 mg PO HS #90 tablet - Follow Up Plan Condition: STABLE Disposition: REHAB FACILITY/REHAB UNIT Instructions: Simvastatin (By mouth), Renal Failure Diet (DC), Hyperkalemia (DC ), Hyperkalemia (GEN), Dyspnea (GEN), Hypoxemia (DC) Additional Instructions: give fluconazole 100 mg IV daily x 7 days
== END 2016-12-17 18:15 | DRG 190 ==
LOC: C.ER 19:39 → C.3T 22:54
PROVIDERS: ADMIT Family Medicine; ATTEND Family Medicine
DX: J44.0 Chronic obstructive pulmonary disease with (acute) lower respiratory infection (principal); J18.9 Pneumonia, unspecified organism; I13.0 Hypertensive heart and chronic kidney disease with heart failure and stage 1 through stage 4 chronic kidney disease, or unspecified chronic kidney disease; E11.22 Type 2 diabetes mellitus with diabetic chronic kidney disease; J84.89 Other specified interstitial pulmonary diseases; I50.9 Heart failure, unspecified; E11.9 Type 2 diabetes mellitus without complications; J61 Pneumoconiosis due to asbestos and other mineral fibers; J44.1 Chronic obstructive pulmonary disease with (acute) exacerbation; F41.9 Anxiety disorder, unspecified; F51.04 Psychophysiologic insomnia; I25.10 Atherosclerotic heart disease of native coronary artery without angina pectoris; N40.0 Benign prostatic hyperplasia without lower urinary tract symptoms; R09.02 Hypoxemia; N18.2 Chronic kidney disease, stage 2 (mild); M41.20 Other idiopathic scoliosis, site unspecified; F06.30 Mood disorder due to known physiological condition, unspecified; E78.00 Pure hypercholesterolemia, unspecified; E78.5 Hyperlipidemia, unspecified; Z77.090 Contact with and (suspected) exposure to asbestos; Z95.5 Presence of coronary angioplasty implant and graft; Z95.2 Presence of prosthetic heart valve; Z87.11 Personal history of peptic ulcer disease; Z87.891 Personal history of nicotine dependence; Z86.73 Personal history of transient ischemic attack (TIA), and cerebral infarction without residual deficits; Z95.1 Presence of aortocoronary bypass graft